=== PATIENT | female | born 1955 | race Caucasian/White ===

== ENCOUNTER → 2017-01-07 17:31 | Outpatient (CLI) | payer BC ==
[2016-04-14 14:25] VITALS: BMI 53.4
[~2017-01-07 17:31] MED LIST: BACTROBAN NASAL1 GM NASAL; CLEOCIN HCL300 MG PO; EFFEXOR XR150 MG PO; ELIQUIS2.5 MG PO; FERREX 150 PLUS1 CAP PO; HYDROCODON-ACE1 EAC9 PO; HYDROCODONE-APA1 TAB PO; KLOR-CON 1010 MEQ PO; MAG-OXIDE400 MG PO; MAXZIDE 75/501 TAB PO; MORPHINE SULFAT30 M4 PO; NEURONTIN 300300 MG PO; PROTONIX40 MG PO; STOOL SOFTENER240 MG PO; ZANAFLEX4 MG PO
== END | disposition home or self-care (01) ==
LOC: D.LABREF 17:31
DX: M19.90 Unspecified osteoarthritis, unspecified site (principal)

== ENCOUNTER 2017-03-22 05:15 | Inpatient (IN) | payer BC ==
[2017-03-19 12:35] LABS: BASOPHILS 1.4 % (0-2); EOSINOPHILS 0.5 % (0-7); HEMATOCRIT 37.3 % (36.0-48.0); HEMOGLOBIN 11.8 g/dL (12-16); IMMATURE GRANULOCYTES 0.2 % (0-5); LYMPHOCYTES 27.6 % (15-50); MCH 27.4 pg (26.0-34.0); MCHC 31.6 g/dL (31.0-37.0); MCV 86.7 fL (80.0-100.0); MEAN PLATELET VOLUME 10.8 fL (7.4-10.4); MONOCYTES 11.4 % (2-11); NEUTROPHILS 58.9 % (40-80); PLATELET COUNT 305 10x3/uL (130-400); RDW 21.7 % (11.5-14.5); WBC 4.3 10x3/uL (4.8-10.8)
[2017-03-19 12:44] LABS: APTT 24.1 SECONDS (22.8-39.4); INR 1.06 (0.85-1.17); PROTIME 13.6 SECONDS (11.6-15.0)
[2017-03-19 12:45] LABS: APPEARANCE HAZY (CLEAR); BILIRUBIN NEGATIVE (NEGATIVE); COLOR YELLOW (YELLOW); GLUCOSE NEGATIVE (NEGATIVE); KETONE NEGATIVE (NEGATIVE); LEUKOCYTE ESTERASE 1+ (NEGATIVE); NITRITE NEGATIVE (NEGATIVE); PROTEIN NEGATIVE (NEGATIVE); SPECIFIC GRAVITY 1.015 (1.005-1.020); UROBILINOGEN NORMAL (NORMAL)
[2017-03-19 12:46] LABS: ANION GAP 18.2 mmol/L (8-16); CALCIUM 9.2 mg/dL (8.5-10.1); CARBON DIOXIDE 22.7 mmol/L (21.0-32.0); CREATININE - SERUM 1.1 mg/dL (0.6-1.3); POTASSIUM - SERUM 3.9 mmol/L (3.5-5.1)
[2017-03-19 12:48] LABS: BACTERIA MODERATE /hpf (NONE SEEN); RED CELLS - URINE OCC /hpf (0-5)
[2017-03-22] VITALS (11 sets, daily range): BP systolic 121–155; BP diastolic 47–91; Ht 167.6 cm; Wt 136.4 kg
[~2017-03-22] VITALS: Ht 167.6 cm; Wt 136.4 kg
[~2017-03-22 05:15] MED LIST changes: +DURAGESIC1 PATCH .7 TRANSDERM; +FUROSEMIDE40 MG PO; +LYRICA75 MG PO
[2017-03-22] MEDS ORDERED: BENTYL 20 MG TA20 MG (11:19)
[2017-03-22] MEDS ORDERED: ENDOCET 10-3251 TAB PO (11:20)
--- NOTE | 2017-03-22 15:15 | NUR ---
RECEIVED TO ROOM 2209 VIA BED FROM PACU. A/O X3. DRESSING TO LEFT HIP DRY AND INTACT WITH ICE BAG IN PLACE. INSTRUCTED IN USE OF IS WA. RETURN DEMONSTRATION. SKIN INTACT. DENIES NEEDS.
--- NOTE | 2017-03-22 18:56 | NUR ---
ATE ALL OF SUPPER. REPORTS GOOD RELIEF WITH USE OF PERCOCET PO. WILL CONTINUE TO MONITOR. NO CHANGES NOTED. DENIES NEEDS.
--- NOTE | 2017-03-22 23:45 | NUR ---
PATIENT RESTING IN BED. VISITING WITH SISTER. SMILING AND LAUGHING. INSISTING PAIN IS 8/10 TO HIP. REQUESTING "PAIN PUMP". EDUCATED PATIENT ON PAIN SCALE. CONTINUES TO RATE PAIN 8/10. [employer] STARTED PER ORDER AT PATIENT REQUEST. SCHEDULED MEDS GIVEN. SHIFT ASSESSMENT COMPLETED. DENIES ANY OTHER NEEDS AT THIS TIME.
[2017-03-23] VITALS: BP 106/59
--- NOTE | 2017-03-23 03:03 | NUR ---
PATIENT RESTING WITH EYES CLOSED AND NO VISIBLE SIGNS OF DISTRESS. BED IN LOWEST POSITION AND CALL LIGHT WITHIN REACH.
[2017-03-23 04:00] VITALS: BP 100/51
[2017-03-23 07:00] LABS: HEMATOCRIT 29.6 % (36.0-48.0); HEMOGLOBIN 9.1 g/dL (12-16); MCH 26.8 pg (26.0-34.0); MCHC 30.7 g/dL (31.0-37.0); MCV 87.3 fL (80.0-100.0); MEAN PLATELET VOLUME 10.7 fL (7.4-10.4); RBC 3.39 10x6/uL (4.00-5.40); RDW 21.7 % (11.5-14.5); WBC 7.4 10x3/uL (4.8-10.8)
--- NOTE | 2017-03-23 07:39 | NUR ---
AWAKE AND ALERT. ORIENTED X3. LUNGS ARE CLEAR BILATERALLY, NO COUGH NOTED. SKIN IS INTACT WITHOUT REDNESS EXCEPT INCISION TO LEFT HIP WHICH HAS A DRY INTACT DRESSING IN PLACE. IV TO LEFT WRIST IS PATENT WITHOUT REDNESS AT INSERTION SITE. DENIES NEEDS.
[2017-03-23 08:18] VITALS: BP 100/50
--- NOTE | 2017-03-23 10:00 | NUR ---
SITTING UP IN CHAIR AT BEDSIDE PER PT. DENIES NEEDS.
--- NOTE | 2017-03-23 11:26 | NUR ---
REQUESTED AND GIVNE ONE PERCOCET PO FOR C/O LEFT HIP LEVEL 9. WILL MONITOR.
[2017-03-23 11:52] VITALS: BP 130/71
--- NOTE | 2017-03-23 13:58 | NUR ---
ATE MOST OF LUNCH. AMBULATED WITH PT USING RW. NO C/O AT THIS TIME. DENIES NEEDS.
--- NOTE | 2017-03-23 14:18 | NUR ---
Patient Name: ESTRADA BARR Admission Status: Elective Accout number: [id number] Admission Date: 03-22-2017 : 1955 Admission Diagnosis: Attending: NATASHA Current LOS: 1 Anticipated DC Date: 03-25-2017 Planned Disposition: Home with Home Health Primary Insurance: [employer] [facility] EXCHANGE Discharge Planning Comments: CM MET WITH PATIENT REGARDING D/C NEEDS AND PLANS. PATIENT STATED HER FRIEND (CARIE) WILL PICK HER UP AT DISCHARGE. PATIENTS HOME IS SAFE AND HAS A RAMP TO ENTER HOME AND NO STAIRS INSIDE. PATIENT STATED SHE IS INDEPENDENT WITH HER CARE AND HAS A ROLATOR WALKER, CANE, AND BS COMMODE AT HOME. PATIENTS PCP IS DR. DE LA CRUZ AND USES [facility] IN [place]. PATIENT IS FINDING OUT WHICH HOME HEALTH SHE USED THE LAST TIME AND LET CM KNOW. CM WILL CONTINUE TO FOLLOW PATIENT WITH D/C NEEDS AND PLANS. [facility] DR[facility] [place] [phone] CARIE (FRIEND) [phone] Scrap Drop Operator: Lucy Sweet Is the patient Alert and Oriented? Yes 0 * How many steps to enter\exit or inside your home? RAMP 0 * PCP DR. DE LA CRUZ 0 * Pharmacy [facility] IN [place] 0 * Preadmission Environment Home with Family 0 * ADLs Independent 0 * Equipment Bedside Commode Cane Rolling Walker 0 * List name and contact numbers for known caregivers / representatives who currently or will assist patient after discharge: CARIE MEENAKSHI (FRIEND) [phone] 0 * Community resources currently utilized None 0 * Additional services required to return to the preadmission environment? Yes 0 * Can the patient safely return to the preadmission environment? Yes 0 * Has this patient been hospitalized within the prior 30 days at any hospital? No 0 Grand Total: 0
--- NOTE | 2017-03-23 16:09 | NUR ---
CM REASSESSMENT NOTE: PATIENT USED [facility] IN [place] AND REFERRAL WILL BE SENT FOR PT. [facility] ([place]) [phone] FAX [phone]
[2017-03-23 16:28] VITALS: BP 109/47
--- NOTE | 2017-03-23 18:44 | NUR ---
ATE ABOUT HALF OF SUPPER. WAS UP TO BR AND DRESSING TO LEFT HIP WAS REENFORCED PER STAFF. NO CHANGES NOTED. REPORTS NO BM TODAY.
[2017-03-23 20:00] VITALS: BP 97/53
--- NOTE | 2017-03-23 20:07 | NUR ---
MEDS GIVEN PER MAR, ETHAN WELL, DENIES NEEDS, FALL PRECAUTIONS IN PLACE, CL IN REACH
--- NOTE | 2017-03-23 21:50 | NUR ---
WATCHING TV, DENIES NEEDS, SAFETY MEASURES IN PLACE, CL IN REACH
--- NOTE | 2017-03-23 23:40 | NUR ---
PRN OXY GIVEN PER REQUEST FOR C/O PAIN 06/10, ETHAN WELL, CL IN REACH
[2017-03-24] VITALS: BP 106/59
--- NOTE | 2017-03-24 01:25 | NUR ---
RESTING WITH EYES CLOSED, RESP WITH EASE, NO DISTRESS NOTED, SR'S UP, CL IN REACH
[2017-03-24 04:00] VITALS: BP 82/43
[2017-03-24 05:57] LABS: HEMATOCRIT 25.5 % (36.0-48.0); HEMOGLOBIN 8.2 g/dL (12-16); MCH 27.9 pg (26.0-34.0); MCHC 32.2 g/dL (31.0-37.0); MCV 86.7 fL (80.0-100.0); MEAN PLATELET VOLUME 10.5 fL (7.4-10.4); RBC 2.94 10x6/uL (4.00-5.40); RDW 21.7 % (11.5-14.5)
[2017-03-24 06:02] LABS: WBC 4.8 10x3/uL (4.8-10.8)
--- NOTE | 2017-03-24 07:30 | NUR ---
REPORT RECEIVED FROM SKIN PASS OPERATOR NURSE. CALL LIGHT IN REACH.
--- NOTE | 2017-03-24 07:52 | NUR ---
PERCOCET PO WITH AM MEDS ADMINISTERED. REFUSES SCDs AT THIS TIME. CALL LIGHT IN REACH.
[2017-03-24 08:07] VITALS: BP 86/53
--- NOTE | 2017-03-24 08:36 | NUR ---
PATIENT STATED SHE HAS GOT OUT OF BED BY HERSELF. EDUCATED PATIENT ON FALL PRECAUTIONS, TURNED BED ALARM ON. PATIENT STATED "I AM NOT GOING TO GET UP BY MYSELF AGAIN."
--- NOTE | 2017-03-24 10:20 | NUR ---
SITTING IN CHAIR PER PT. ALSO AMBULATED IN HALLWAY WITH PHYSICAL THERAPY.
--- NOTE | 2017-03-24 11:51 | NUR ---
SITTING IN CHAIR. NORCO PO PER PATIENT REQUEST FOR PAIN MEDS D/T PAIN OF 7.
--- NOTE | 2017-03-24 12:20 | NUR ---
NORCO PO PER PATIENT REQUEST FOR PAIN MEDS D/T PAIN OF 7.
[2017-03-24 12:34] VITALS: BP 130/57
--- NOTE | 2017-03-24 14:35 | NUR ---
PRBC UNIT 1 INITIATED PER SAMMY VANCE. VSS. WILL CONTINUE TO MONITOR VITAL SIGNS.
--- NOTE | 2017-03-24 15:18 | NUR ---
PLACED ON BEDPAN. PERCOCET PO PER PATIENT REQUEST.
[2017-03-24 16:27] VITALS: BP 121/30
--- NOTE | 2017-03-24 17:30 | NUR ---
BLOOD IS COMPLETED. VSS. CALL LIGHT IN REACH.
--- NOTE | 2017-03-24 18:55 | NUR ---
NO CHANGES IN INITIAL ASSESSMENT. CALL LIGHT IN REACH. REFUSES SCDs. ICE TO HIP. WILL CONTINUE WITH PLAN OF CARE.
[2017-03-24 20:00] VITALS: BP 134/53
--- NOTE | 2017-03-24 22:59 | NUR ---
REC'D PATIENT SITTING UP IN BED WATCHING TV. ALERT AND ORIENTED X4. NO DISTRESS NOTED. IS WANTING A PAIN PILL STATED PAIN WAS "7/10" WILL ADMINISTER PM MEDS PRESCRIBED. DENIED FURTHER NEEDS AT THIS TIME. BED LOW, LOCKED, CALL LIGHT IN REACH.
[2017-03-25] VITALS: BP 90/47
--- NOTE | 2017-03-25 01:44 | NUR ---
PATIENT WAS COMPLAINING OF PAIN AFTER SHE CAME BACK FROM THE BATHROOM. REPORTED PAIN 7/10. ASKED FOR A PAIN PILL, WILL ADMINISTER MEDS ORDERED.
[2017-03-25 04:00] VITALS: BP 99/45
--- NOTE | 2017-03-25 07:10 | NUR ---
REPORT RECEIVED FROM COMPLIANCE INVESTIGATOR NURSE. CALL LIGHT IN REACH.
--- NOTE | 2017-03-25 07:53 | NUR ---
PERCOCET PO WITH AM MEDS ADMINISTERED. CALL LIGHT IN REACH. REFUSES SCDs. WILL CONTINUE WITH PLAN OF CARE.
[2017-03-25 08:09] VITALS: BP 92/53
[2017-03-25] MEDS ORDERED: ENDOCET 10-3251 TAB PO (08:16)
[2017-03-25] MEDS ORDERED: ELIQUIS2.5 MG PO (08:16)
[2017-03-25 08:29] LABS: HEMATOCRIT 29.5 % (36.0-48.0); HEMOGLOBIN 9.4 g/dL (12-16)
--- NOTE | 2017-03-25 09:08 | NUR ---
CM Note: CM checked with patient prior to discharge, pt stated that she has everthing set up and can not think of any other needs at this time. CM will continue to follow & assist if needed. Symone Rios RN
--- NOTE | 2017-03-25 10:20 | NUR ---
AMBULATED WITH PT. TOLERATED WELL.
--- NOTE | 2017-03-25 12:15 | NUR ---
PATIENT UP AT BEDSIDE. NO SIGNS OF DISTRESS NOTED. STATES RIDE WILL BE HERE IN ABOUT AN HOUR
--- NOTE | 2017-03-25 12:39 | NUR ---
CM: PT discharging today with friend driving her home. [facility] aware of patients discharge Kristina BARBOUR RN
--- NOTE | 2017-03-25 13:01 | NUR ---
DURAGESIC PATCH CHANGED. RX FOR ELIQUIS AND PERCOCET HANDED TO PATIENT. DC INSTRUCTIONS EXPLAINED. VERBALIZED UNDERSTANDING.
--- NOTE | 2017-03-25 13:30 | NUR ---
DC'D TO VEHICLE VIA WC WITH FAMILY.
--- NOTE | 2017-03-30 13:11 | OP ---
PATIENT NAME: ESTRADA BARR MEDICAL RECORD: [id number] :[birth year] LOCATION:D[facility] [place] ADMISSION DATE:03/22/17 SURGEON: TIFFANY CRAWFORD MD DATE OF OPERATION: 03/22/2017 PREOPERATIVE DIAGNOSES: 1. Degenerative arthritis of the left hip. 2. Morbid obesity. POSTOPERATIVE DIAGNOSES: 1. Degenerative arthritis of the left hip. 2. Morbid obesity. PROCEDURE: Left total hip arthroplasty. SURGEON: Tiffany Crawford MD ANESTHESIA: General. INTRAOPERATIVE COMPLICATIONS: None. SUMMARY OF PATHOLOGIC FINDINGS: The patient did indeed have severe osteoarthritic changes of the left hip. IMPLANTS USED: [place] Accolade II, total hip system with size 6 TMZF coated Accolade II stem, a Tritanium hemispherical cluster hole shell size 50, alpha code D, 0-degree polyethylene insert, 36-mm alpha code D and a Biolox ceramic V40 femoral head, standard. ESTIMATED BLOOD LOSS: 200 cc. OPERATIVE SUMMARY IN DETAIL: After obtaining the appropriate preoperative orthopedic surgery consents as well as anesthetic consultation, evaluation and clearance, the patient was brought to the operating room and placed on the operating table in supine position. After adequate general laryngeal mask airway anesthesia was administered, the patient was placed in the right lateral decubitus position. All pressure points were well padded to include down leg peroneal pad as well as axillary roll. The patient was held firmly to the operating table using the vacuum pack suction system. Left hip and lower extremity were prepped and draped in a routine sterile fashion. Curvilinear incision was made. Incision was made and taken down to the level of the IT band, which was very deep to the superficial tissues. IT band was identified and split in line with the fibers of the IT band to reveal gluteus medius and minimus attachment to the greater trochanter. These were reflected anteriorly. The hip capsule was then cut in a T-type fashion and saved for later reapproximation. Hip was dislocated and the femoral neck cut was made using the femoral neck cutting guide for the Accolade system. The acetabulum was completely exposed. Circumferential labrectomy was followed by serial and sequential reaming to a size 49 up for a size 50 Tritanium cup. This was put into place with excellent capture, polyethylene was tamped into place and checked. At this point, the proximal femur was exposed and serial and sequential reaming and broaching were done for a size 6 Accolade stem was put into place. Trials were then undertaken with the head and it was felt that standard was the most appropriate for leg length uatsdin. Standard head was tamped into place with Dowell taper. The hip was reduced, taken through range of OPERATIVE REPORT [id number] ESTRADA BARR B motion and found to be stable in all planes. Wound was copiously irrigated. The hip capsule was closed using #2 Ethibond followed by reapproximation of the gluteus medius and minimus in a transosseous fashion back to the greater trochanter using #5 Ethibond. IT band was closed with #5 Ethibond. This was followed by #1 Vicryl, 2-0 Vicryl and skin amber. Please note that in multiple points during the case was the wound irrigated. Sterile dressings were applied. The patient was awakened, taken to recovery room in stable condition. All final needle and sponge counts were correct. TRANSINT:[id number] Voice Confirmation ID: [id number] DOCUMENT ID: [id number] TY LIMA, TIFFANY GAMBOA at 1311 CC: [id number] DICTATION DATE: 03/22/17 1401 METAL TEMPLATE MAKER: 03/22/17 2325 DIS IN 03/25/17 [facility] [address] [place] [address]
== END 2017-03-25 13:30 | disposition home health service (06) | DRG 470 ==
LOC: D.MS 05:15 → D.SDCHOLD 05:15 → D.MS 14:48
PROVIDERS: ADMIT Orthopaedic Surgery
PROC: 0SRB04Z Replacement of Left Hip Joint with Ceramic on Polyethylene Synthetic Substitute, Open Approach (ICD-10-PCS; principal; 2017-03-22 10:30)
DX: M16.12 Unilateral primary osteoarthritis, left hip (principal); Z68.43 Body mass index [BMI] 50.0-59.9, adult; D62 Acute posthemorrhagic anemia; E66.01 Morbid (severe) obesity due to excess calories; I10 Essential (primary) hypertension

== ENCOUNTER 2017-04-05 00:30 | Emergency (ER) | payer BC ==
[2017-03-22 15:18] VITALS: BMI 48.5
[~2017-04-05 00:30] MED LIST changes: +BENTYL 20 MG TA20 MG; +ENDOCET 10-3251 TAB PO
[2017-04-05 01:50] LABS: HEMATOCRIT 33.9 % (36.0-48.0); HEMOGLOBIN 10.8 g/dL (12-16); LYMPHOCYTES 9.3 % (15-50); MCH 28.2 pg (26.0-34.0); MCHC 31.9 g/dL (31.0-37.0); MCV 88.5 fL (80.0-100.0); MEAN PLATELET VOLUME 9.9 fL (7.4-10.4); RBC 3.83 10x6/uL (4.00-5.40); RDW 19.5 % (11.5-14.5); WBC 5.9 10x3/uL (4.8-10.8)
[2017-04-05 01:56] LABS: PLATELET COUNT 298 10x3/uL (130-400)
[2017-04-05 02:02] LABS: ALBUMIN 3.5 g/dL (3.4-5.0); ANION GAP 15.2 mmol/L (8-16); BILIRUBIN - TOTAL 0.55 mg/dL (0.2-1.3); CALCIUM 9.5 mg/dL (8.5-10.1); CARBON DIOXIDE 27.6 mmol/L (21.0-32.0); POTASSIUM - SERUM 3.8 mmol/L (3.5-5.1); PROTEIN - SERUM 7.5 g/dL (6.4-8.2)
== END 2017-04-05 02:30 | disposition home or self-care (01) ==
LOC: D.ER 00:30
PROVIDERS: Family Medicine
DX: L76.34 Postprocedural seroma of skin and subcutaneous tissue following other procedure (principal); K21.9 Gastro-esophageal reflux disease without esophagitis; Y83.8 Other surgical procedures as the cause of abnormal reaction of the patient, or of later complication, without mention of misadventure at the time of the procedure; Y79.2 Prosthetic and other implants, materials and accessory orthopedic devices associated with adverse incidents

== ENCOUNTER → 2017-04-09 12:47 | Outpatient (CLI) | payer BC ==
[2017-03-22 15:18] VITALS: BMI 48.5
== END | disposition home or self-care (01) ==
LOC: D.LABREF 12:47
DX: Z96.642 Presence of left artificial hip joint (principal)

== ENCOUNTER 2017-04-15 18:12 | Inpatient (IN) | payer BC ==
[~2017-04-15] VITALS: Ht 167.6 cm; Wt 138.3 kg
[2017-04-15 19:42] LABS: EOSINOPHILS 1.7 % (0-7); HEMATOCRIT 36.6 % (36.0-48.0); HEMOGLOBIN 11.4 g/dL (12-16); IMMATURE GRANULOCYTES 0.2 % (0-5); LYMPHOCYTES 19.6 % (15-50); MCH 27.8 pg (26.0-34.0); MCHC 31.1 g/dL (31.0-37.0); MCV 89.3 fL (80.0-100.0); MEAN PLATELET VOLUME 10.9 fL (7.4-10.4); NEUTROPHILS 67.5 % (40-80); PLATELET COUNT 338 10x3/uL (130-400); RDW 17.6 % (11.5-14.5); WBC 5.2 10x3/uL (4.8-10.8)
[2017-04-15 19:53] LABS: C-REACTIVE PROTEIN 2.5 mg/dL (0.0-0.9); CALCIUM 9.2 mg/dL (8.5-10.1); CARBON DIOXIDE 25.7 mmol/L (21.0-32.0); CREATININE - SERUM 1.1 mg/dL (0.6-1.3); POTASSIUM - SERUM 3.7 mmol/L (3.5-5.1)
[2017-04-15] MEDS ORDERED: BACTRIM DS TABL1 TAB PO (20:06)
[2017-04-15 20:46] VITALS: BP 154/89; BMI 49.3
[2017-04-15 20:53] LABS: ERYTHROCYTE SEDIMENTATION RATE 42 mm/hr (0-30)
--- NOTE | 2017-04-15 20:54 | NUR ---
RN NOTE: ADMISSION ASSESSMENT COMPLETE. PT RESTING IN SUPINE POSITION WITH UNLABORED BREATHING. CANE AT BEDSIDE FOR PT AMBULATION ASSISTANCE. DRESSING ON LEFT HIP CHANGED BY NITRATING ACID MIXER, WITH OLD DRESSING SATURATED WITH PURALENT DRAINAGE. WILL MONITOR CLOSELY FOR NEEDS.
[2017-04-16] VITALS: BP 111/63
[2017-04-16 04:00] VITALS: BP 152/62
--- NOTE | 2017-04-16 07:30 | NUR ---
PT ASSESSMENT COMPLETE AWAKE AND ALERT ORIENTED X 3 LUNGS CLEAR NPO FOR I&D TODAY LEFT HIP WITH DR CRAWFORD. CALL LIGHT IN REACH SIDE RAILS UP X 2
[2017-04-16 08:00] VITALS: BP 138/75
[2017-04-16 11:03] VITALS: BP 132/60
--- NOTE | 2017-04-16 11:49 | NUR ---
FAMILY AT BEDSIDE.PT WITHOUT DISTRESS.CALL LIGHT IN REACH
--- NOTE | 2017-04-16 12:14 | NUR ---
PT REQUESTED AND RECIEVED PERCOCET PER ORDER FOR PAIN CONTROL EARLIER RESTING WELL WITH EYES CLOSED AT THIS TIME AROUSED EASILY TO VERBAL STIMULI
[2017-04-16 12:34] VITALS: Ht 167.6 cm; Wt 138.3 kg
[2017-04-16 16:15] VITALS: BP 146/62
--- NOTE | 2017-04-16 16:17 | NUR ---
RECIEVED TO ROOM 2215 VIA BED PT AWAKE AND ALERT WOUND VAC TO LEFT HIP VITAL SIGNS WNL
[2017-04-16 20:00] VITALS: BP 126/62
--- NOTE | 2017-04-16 21:00 | NUR ---
PATIENT IS RESTING IN BED WITH GUESTS AT BEDSIDE. NO VISIBLE SIGNS OF DISTRESS. WOUND VAC IN PLACE. BED IN LOWEST POSITION AND CALL LIGHT WITHIN REACH. ENCOURAGED THE PATIENT TO CALL IF SHE HAS NEEDS.
[2017-04-17 00:11] VITALS: BP 135/56
[2017-04-17 04:00] VITALS: BP 125/62
--- NOTE | 2017-04-17 08:15 | NUR ---
ASSESSMENT COMPLETE. IV TO R FA PATENT. NS INFUSING AT 100 CC/HR VIA PUMP. WOUNDVAC IN USE TO L HIP. DENIES ANY NEEDS AT PRESENT.
[2017-04-17 08:59] VITALS: BP 164/78
--- NOTE | 2017-04-17 10:00 | NUR ---
IV TO R FA WITH SWELLING NOTED. IV REMOVED. CATHETER TIP INTACT. IV SITED TO L FA WITH 22 GUAGE X 1 ATTEMPT.
[2017-04-17 13:13] VITALS: BP 156/85
--- NOTE | 2017-04-17 15:00 | NUR ---
DENIES ANY NEEDS AT PRESENT.
[2017-04-17 17:43] VITALS: BP 117/65
--- NOTE | 2017-04-17 17:57 | NUR ---
NO CHANGES NOTED AT PRESENT.
[2017-04-17 20:00] VITALS: BP 154/72
--- NOTE | 2017-04-17 20:00 | NUR ---
PATIENT IS RESTING IN BED AND DENIES NEEDS AT THIS TIME. BED IN LOWEST POSITION AND CALL LIGHT WITHIN REACH. ENCOURAGED THE PATIENT TO CALL IF SHE HAS NEEDS.
[2017-04-18] VITALS: BP 110/54
[2017-04-18 04:00] VITALS: BP 168/61
--- NOTE | 2017-04-18 08:00 | NUR ---
ASSESSMENT COMPLETE. IV TO L FA PATENT. NS INFUSING AT 100 CC/HR VIA PUMP. WOUNDVAC IN USE TO L HIP. DENIES ANY NEEDS AT PRESENT.
[2017-04-18 09:02] VITALS: BP 153/74
--- NOTE | 2017-04-18 11:00 | NUR ---
NO CHANGES NOTED AT PRESENT.
[2017-04-18 12:44] VITALS: BP 133/65
--- NOTE | 2017-04-18 13:00 | NUR ---
NO CHANGES NOTED AT PRESENT.
--- NOTE | 2017-04-18 17:00 | NUR ---
NO CHANGES NOTED AT PRESENT.
[2017-04-18 17:19] VITALS: BP 146/74
--- NOTE | 2017-04-18 18:15 | NUR ---
IV TO L FA WITH REDNESS AND TENDERNESS NOTED. IV REMOVED. CATHETER TIP INTACT.
--- NOTE | 2017-04-18 19:40 | NUR ---
PATIENT RESTING IN BED AND DENIES NEEDS AT THIS TIME. BED IN LOWEST POSITION AND CALL LIGHT WITHIN REACH. ENCOURAGED THE PATIENT TO CALL IF SHE HAS NEEDS.
[2017-04-18 20:00] VITALS: BP 121/72
[2017-04-19] VITALS (10 sets, daily range): BP systolic 122–156; BP diastolic 50–93
[2017-04-19 06:44] LABS: HEMATOCRIT 33.2 % (36.0-48.0); HEMOGLOBIN 10.1 g/dL (12-16); MCH 27.3 pg (26.0-34.0); MCHC 30.4 g/dL (31.0-37.0); MCV 89.7 fL (80.0-100.0); MEAN PLATELET VOLUME 10.3 fL (7.4-10.4); RBC 3.7 10x6/uL (4.00-5.40); RDW 17.2 % (11.5-14.5); WBC 2.8 10x3/uL (4.8-10.8)
[2017-04-19 07:05] LABS: ANION GAP 13.4 mmol/L (8-16); CALCIUM 8.8 mg/dL (8.5-10.1); CARBON DIOXIDE 28.7 mmol/L (21.0-32.0); CREATININE - SERUM 0.9 mg/dL (0.6-1.3); POTASSIUM - SERUM 4.1 mmol/L (3.5-5.1)
--- NOTE | 2017-04-19 07:05 | NUR ---
PATIENT RECEIVED ALERT IN LOW [place] POSITION. NO SIGNS OF DISTRESS NOTED. REQUESTING PAIN MEDICATION. NO OTHER NEEDS VOICED. SIDE RAILS UP X2. BED IN LOW POSITION. CALL LIGHT IN REACH.
--- NOTE | 2017-04-19 07:27 | NUR ---
PERCOCET ADMINISTERED PER PRN ORDER FOR PAIN 04/10. NO FURTHER NEEDS VOICED. SIDE RAILS UP X2. BED IN LOW POSITION. CALL LIGHT IN REACH.
--- NOTE | 2017-04-19 09:00 | NUR ---
ALERT IN BED. RATES PAIN 5/10. DENIES NEEDS. SIDE RAILS UP X2. BED IN LOW POSITION. CALL LIGHT IN REACH.
--- NOTE | 2017-04-19 11:30 | OP ---
PATIENT NAME: ESTRADA BARR MEDICAL RECORD: [id number] :59 LOCATION:D.[facility] [place] ADMISSION DATE:04/15/17 SURGEON: TIFFANY CRAWFORD MD DATE OF OPERATION: 04/16/2017 PREOPERATIVE DIAGNOSIS: Draining wound, status post total hip arthroplasty of the left hip. POSTOPERATIVE DIAGNOSIS: Large infected hematoma of the left hip wound that did not go to the prosthesis. PROCEDURE: 1. Excisional debridement of large infected hematoma. 2. Application of wound VAC. SURGEON: Tiffany Crawford MD. ANESTHESIA: General. INTRAOPERATIVE COMPLICATIONS: None. SUMMARY OF PATHOLOGIC FINDINGS: The patient had a very small pinpoint hole; however, when opened up, it was a hematoma that measured approximately 30 cm x 10 cm x 15 cm deep; however, did not appear to penetrate to the hip prosthesis itself. Cultures were taken. OPERATIVE SUMMARY IN DETAIL: After obtaining the appropriate preoperative orthopedic surgery consent as well as anesthetic consultation, evaluation and clearance, the patient was brought to the operating room and placed on the operating table in supine position. After general laryngeal mask was administered, the patient was placed in a right lateral decubitus position. All pressure points were well padded to include down leg peroneal pad as well as axillary roll. The patient was held firmly to the operating table using the vacuum pack suction system. The patient's left lower extremity and hip were prepped and draped in a routine sterile fashion. At this point, the last remaining amber were taken out and the small wound was opened up and came open slightly and palpation in with a sucker tip showed that this is a very large wound. The entire cavity was then opened up and all nonviable-appearing tissue was removed using scalpel, rongeur and curettage. Copious pulsatile lavage irrigation was used to clean the entirety of the wound. Then, a double layer silver sponge wound VAC was put into place. The wound VAC was set at 125 medium intensity with continuous suction. The patient was then awakened, taken to recovery room in stable condition. All final needle and sponge counts were correct. TRANSINT:[id number] Voice Confirmation ID: [id number] DOCUMENT ID: [id number] OPERATIVE REPORT [id number] ESTRADA BARR MD, JAMES KEVIN at 1130 CC: [id number] DICTATION DATE: 04/16/17 1518 STOVE MECHANIC: 04/17/17 0011 ADM IN [facility] [address] [place] [id number]
--- NOTE | 2017-04-19 12:00 | NUR ---
ALERT IN BED WATCHING TV. NO SIGNS OF DISTRESS NOTED. DENIES NEEDS. SIDE RAILS UP X2. BED IN LOW POSITION. CALL LIGHT IN REACH.
--- NOTE | 2017-04-19 14:20 | NUR ---
ALERT IN BED WATCHING TV. PRE PROCEDURE MEDICATION ADMINISTERED PER ORDER. DENIES NEEDS. SIDE RAILS UP X2. BED IN LOW POSITION. CALL LIGHT IN REACH.
--- NOTE | 2017-04-19 14:57 | NUR ---
PATIENT TO SURGERY VIA BED
--- NOTE | 2017-04-19 16:17 | NUR ---
Patient is presently on service with [facility]. CM spoke w/ Marilee at the [place] office. Plan is to resume care at discharge. CM went to patient's room earlier however she was in surgery for I&D. CM will revisit to assess pt's plan and needs. PCP- DR Matthew Miller Surgery- DR Hilton
--- NOTE | 2017-04-19 17:00 | NUR ---
PATIENT BACK TO ROOM FROM PACU. A/O X4. VITAL SIGNS STABLE. INCENTIVE SPIROMETER AND TEACHING PROVIDED. DEMONSTRATES CORRECT USE. DENIES NEEDS. SIDE RAILS UP X2. BED IN LOW POSITION. CALL LIGHT IN REACH.
--- NOTE | 2017-04-19 18:34 | NUR ---
ALERT IN BED WATCHING TV. NO SIGNS OF DISTRESS NOTED. VITAL SIGNS STABLE. PERCOCET ADMINISTERED FOR PAIN 05/10. SIDE RAILS UP X2. BED IN LOW POSITION. CALL LIGHT IN REACH.
--- NOTE | 2017-04-19 20:00 | NUR ---
ASSESSMENT PER FLOWSHEET. IV PATENT LEFT FOREARM OF 1/2NS AT 50CC'S/HR SITE CLEAR. DRESSING TO LEFT HIP INCISION WITH WOUND VAC IN PLACE. RESTING QUIETLY. DENIES NEEDS.
--- NOTE | 2017-04-19 21:00 | NUR ---
MEDS GIVEN PER MAR.
--- NOTE | 2017-04-19 23:41 | NUR ---
C/O INCISIONAL PAIN RATES PAIN LEVEL #6. PERCOCET TAB ONE PO GIVEN FOR PAIN CONTROL.
[2017-04-20] VITALS: BP 132/70
--- NOTE | 2017-04-20 02:00 | NUR ---
RESTING QUIETLY GETS UP AD RADHA TO BR VOIDS WELL.
[2017-04-20 04:00] VITALS: BP 113/57
--- NOTE | 2017-04-20 04:06 | NUR ---
C/O INCISIONAL PAIN RATES PAIN LEVEL #6. PERCOCET TAB ONE PO GIVEN FOR PAIN CONTROL
--- NOTE | 2017-04-20 04:49 | NUR ---
EYES CLOSED RESPIRATIONS WITH EASE AND UNLABORED.
--- NOTE | 2017-04-20 07:45 | NUR ---
PT AOX4 RESP EVEN AND NONLABORED PT DENIES NEEDS AT THIS TIME IV TO LEFT FOREARM PATENT AND INTACT SRX2 BED IN LOWEST SETTING CALL LIGHT WITHIN REACH WILL CONTINUE TO MONITOR
[2017-04-20 08:17] VITALS: BP 146/78
--- NOTE | 2017-04-20 09:35 | NUR ---
Patient Name: ESTRADA BARR Admission Status: Elective Accout number: [id number] Admission Date: 04-15-2017 : 1955 Admission Diagnosis:INFECTION FOLLOWING A PROCEDURE, INITIAL ENCOUNTER Attending: NATASHA Current LOS: 5 Anticipated DC Date: 04-21-2017 Planned Disposition: Home with Home Health Primary Insurance: [employer] [facility] EXCHANGE Discharge Planning Comments: CM MET WITH PATIENT REGARDING D/C NEEDS AND PLANS. PATIENT LIVES IN THE BASEMENT OF HER SISTERS ([facility]) HOME. PATIENT DOES NOT USE ANY STEPS OR STAIRS AT HER HOME (IT IS A WALK IN BASEMENT). PATIENTS SISTER WILL DRIVE HER HOME AT DISCHARGE.PATIENT IS INDEPENDENT WITH HER CARE AND HAS A WALKER, AND BS COMMODE AT HOME. PATIENTS PCP IS DR. DE LA CRUZ AND PHARMACY IS [facility] IN [place]. PATIENT IS CURRENT WITH [employer] [employer] CM WILL CONTINUE TO FOLLOW PATIENT WITH D/C NEEDS AND PLANS. PCP DR. DOROTHY ZHAO AT [place]- [phone] TRIST[facility] MORRISON ([place]) [phone] Manager Intern: Lucy Sweet Is the patient Alert and Oriented? Yes 0 * How many steps to enter\exit or inside your home? 0 0 * PCP DR. DE LA CRUZ 0 * Pharmacy [facility] IN [place] 0 * Preadmission Environment Home with Family 0 * ADLs Independent 0 * Equipment Bedside Commode Walker 0 * List name and contact numbers for known caregivers / representatives who currently or will assist patient after discharge: TRISTIAN MORRISON ([place]) [phone] 0 * Community resources currently utilized Home Health 0 * Please name any agencies selected above. y prime 0 * Additional services required to return to the preadmission environment? Yes 0 * Can the patient safely return to the preadmission environment? Yes 0 * Has this patient been hospitalized within the prior 30 days at any hospital? Yes 0 Grand Total: 0
--- NOTE | 2017-04-20 09:39 | NUR ---
CM REASSESSMENT NOTE: WOUND VAC ORDERED THROUGH [facility] ([place]).
[2017-04-20 12:32] VITALS: BP 157/89
[2017-04-20 16:03] VITALS: BP 146/78
[2017-04-20 20:00] VITALS: BP 118/74
[2017-04-21] VITALS: BP 135/72
[2017-04-21 04:00] VITALS: BP 144/73
--- NOTE | 2017-04-21 07:50 | NUR ---
PT AOX4 RESP EVEN AND NONLABORED PT DENIES NEEDS AT THIS TIME IV TO LEFT HAND PATENT AND INTACT SRX2 BED AT LOWEST SETTING CALL LIGHT WITHIN REACH WILL CONTINUE TO MONITOR WOUND VAC FUNCTIONING PROPERLY AT THIS TIME
[2017-04-21 09:04] VITALS: BP 134/73
[2017-04-21 10:14] LABS: BASOPHILS 1.1 % (0-2); EOSINOPHILS 4.3 % (0-7); HEMATOCRIT 36.7 % (36.0-48.0); HEMOGLOBIN 11.4 g/dL (12-16); IMMATURE GRANULOCYTES 0.5 % (0-5); LYMPHOCYTES 22.3 % (15-50); MCH 27.5 pg (26.0-34.0); MCHC 31.1 g/dL (31.0-37.0); MCV 88.6 fL (80.0-100.0); MEAN PLATELET VOLUME 10.3 fL (7.4-10.4); MONOCYTES 13.4 % (2-11); NEUTROPHILS 58.4 % (40-80); PLATELET COUNT 258 10x3/uL (130-400); RBC 4.14 10x6/uL (4.00-5.40); WBC 3.7 10x3/uL (4.8-10.8)
[2017-04-21 10:33] LABS: ANION GAP 12.5 mmol/L (8-16); CALCIUM 9.1 mg/dL (8.5-10.1); CREATININE - SERUM 1.1 mg/dL (0.6-1.3); POTASSIUM - SERUM 3.5 mmol/L (3.5-5.1)
[2017-04-21 12:44] VITALS: BP 154/83
--- NOTE | 2017-04-21 13:49 | NUR ---
NUTRITION MONITORING & EVAL CHART REVIEWED, PT VISIT. PT CURRENTLY FOLLOWING [facility]. WRITING IN FOOD PREFERENCES. RD FOLLOWING
--- NOTE | 2017-04-21 14:02 | NUR ---
CM REASSESSMENT NOTE: DR. SHELLEY SPOKE WITH CM REGARDING PATIENTS CONCERNS WITH COST OF MEDS AT DISCHARGE. JOSE SPOKE WITH [facility] IN [place] REGARDING PATIENTS CONCERNS. AFTER RUNNING INSURANCE THERE WILL BE NO COST TO PATIENT PER BIANKA (PHARMACIST) AND MEDS WILL BE READY TO DAYCARE PROVIDER AFTER LUNCH TOMORROW. DR. SHELLEY NOTIFIED WELL PATIENT.
--- NOTE | 2017-04-21 14:26 | NUR ---
WOUND VAC DRESSING CHANGE WOUND TYPE: surgical WOUND LOCATION: left hip WOUND AGE IN MONTHS: DEBRIDEMENT ATTEMPTED IN LAST 10 DAYS? DATE/TYPE: SERIAL DEBRIDEMENTS REQUIRED? MEASUREMENT DATE: 04/21/17 17.5cm x 6.5cm x 6.7cm FULL THICKNESS? yes MUSCLE, TENDON OR BONE EXPOSED? muscle UNDERMINING? no TUNNELING/SINUS? no APPEARANCE OF WOUND BED : red/beefy EXUDATE (AMOUNT, COLOR, ODOR): moderate serosanguinous no odor FOAM TYPE: black # OF PIECES USED: 2 pieces EDUCATION: Function of wound vac/troubleshooting -125mmhg mod continuous Wound care continues to follow.
[2017-04-21 16:30] VITALS: BP 130/70
[2017-04-21 20:00] VITALS: BP 130/85
--- NOTE | 2017-04-21 20:20 | NUR ---
PATIENT REFUSED MIDNIGHT VITALS
--- NOTE | 2017-04-21 20:27 | NUR ---
SPOKE WITH PHARMACY IN REGARDS TO VANC TROUGH. PHARM CONFIRMED THAT VANC 1G IS TO BE INFUSED.
[2017-04-22 04:39] VITALS: BP 127/62
[2017-04-22 06:55] LABS: BASOPHILS 1.2 % (0-2); EOSINOPHILS 3.8 % (0-7); HEMATOCRIT 32.2 % (36.0-48.0); HEMOGLOBIN 10.2 g/dL (12-16); IMMATURE GRANULOCYTES 0.3 % (0-5); LYMPHOCYTES 22.2 % (15-50); MCH 27.6 pg (26.0-34.0); MCHC 31.7 g/dL (31.0-37.0); MCV 87.3 fL (80.0-100.0); MEAN PLATELET VOLUME 10.8 fL (7.4-10.4); NEUTROPHILS 56.5 % (40-80); PLATELET COUNT 222 10x3/uL (130-400); RBC 3.69 10x6/uL (4.00-5.40); RDW 16.9 % (11.5-14.5); WBC 3.4 10x3/uL (4.8-10.8)
[2017-04-22 06:59] LABS: ANION GAP 11.7 mmol/L (8-16); CALCIUM 8.7 mg/dL (8.5-10.1); CARBON DIOXIDE 27.7 mmol/L (21.0-32.0); POTASSIUM - SERUM 3.4 mmol/L (3.5-5.1)
--- NOTE | 2017-04-22 07:35 | NUR ---
PT AOX4 RESP EVEN AND NONLABORED PT DENIES NEEDS AT THIS TIME IV TO LEFT FOREARM PATENT AND INATACT AT THIS TIME SRX2 BED AT LOWEST SETTING CALL LIGHT WITHIN REACH WILL CONTINUE TO MONITOR
[2017-04-22] MEDS ORDERED: Levaquin PO ×2 (08:18→08:27)
[2017-04-22] MEDS ORDERED: PERCOCET 10/3251 TA1 PO (08:20)
[2017-04-22] MEDS ORDERED: DURAGESIC1 PATCH .7 TRANSDERM (08:20)
[2017-04-22] MEDS ORDERED: FLAGYL500 MG PO (08:21)
[2017-04-22] MEDS ORDERED: SIVEXTRO200 M1 PO (08:22)
[2017-04-22 09:36] VITALS: BP 105/58
--- NOTE | 2017-04-22 10:32 | NUR ---
CM REASSESSMENT NOTE: PATIENT IS DISCHARGING TODAY-PATIENTS SISTER WILL BE DRIVING HER HOME. PATIENT STATED [facility] CALLED HER AND HER MEDS ARE READY. [facility] HAS BEEN NOTIFIED OF DISCHARGE.
--- NOTE | 2017-04-22 14:01 | OP ---
PATIENT NAME: ESTRADA BARR MEDICAL RECORD: [id number] :59 LOCATION:D[facility] [place] ADMISSION DATE:04/15/17 SURGEON: TIFFANY CRAWFORD MD DATE OF OPERATION: 04/19/2017 PREOPERATIVE DIAGNOSIS: Previous infected hematoma, right hip incision. POSTOPERATIVE DIAGNOSIS: Previous infected hematoma, right hip incision. PROCEDURES: 1. Repeat excisional debridement greater than 20 cm skin, subcutaneous tissue, portions of fat, fascia and muscle. 2. Placement of a wound VAC. SURGEON: Tiffany Crawford MD ANESTHESIA: General. INTRAOPERATIVE COMPLICATIONS: None. SUMMARY OF PATHOLOGIC FINDINGS: The wound has granulated nicely and was quite healthy. OPERATIVE SUMMARY IN DETAIL: After obtaining the appropriate preoperative orthopedic surgery consent as well as anesthetic consultation, evaluation and clearance, the patient was brought and placed on the operating table in supine position. After general laryngeal mask was administered, she was placed in the right lateral decubitus position. All pressure points were well padded to include down leg peroneal pad as well as axillary roll. The patient was held firmly to the operating table using the vacuum pack suction system. Left hip was prepped and draped in routine sterile fashion. The previously placed wound VAC had already been removed. At this point a combination of curettage and rongeurs as well as sharp scalpel utilized to debride any nonviable appearing tissue. Copious irrigation was then followed by placement of wound VAC, which was placed on 125 mmHg and continuous suction at medium intensity. The patient was awakened, taken to recovery in stable condition. All final needle and sponge counts were correct. TRANSINT:[id number] Voice Confirmation ID: [id number] DOCUMENT ID: [id number] TIFFANY CRAWFORD MD at 1401 CC: [id number] DICTATION DATE: 04/19/17 1621 SENIOR RESEARCH FELLOW: 04/19/17 9808 ADM IN [place] [address] [place] [address]
--- NOTE | 2017-04-22 14:21 | NUR ---
PT IV DISCONTINUED WITH CATHETER INTACT AT THIS TIME PT GIVEN DISCHARGE INSTRUCTIONS AND PRESCRIPTIONS X5 AT THIS TIME. PT TAKEN VIA WHEELCHAIR TO PRIVATE VEHICLE AT THIS TIME
== END 2017-04-22 14:24 | disposition home health service (06) | DRG 858 ==
LOC: D.LABREF 18:12 → D.MS 18:41
PROVIDERS: Student in an Organized Health Care Education/Training Program; ADMIT Orthopaedic Surgery
PROC: 0JBL0ZZ Excision of Right Upper Leg Subcutaneous Tissue and Fascia, Open Approach (ICD-10-PCS; principal; 2017-04-16 12:00)
PROC: 0KCN0ZZ Extirpation of Matter from Right Hip Muscle, Open Approach (ICD-10-PCS; 2017-04-19 09:45)
DX: T81.4XXA Infection following a procedure, initial encounter (principal); I10 Essential (primary) hypertension; M19.90 Unspecified osteoarthritis, unspecified site; Z96.642 Presence of left artificial hip joint; F32.9 Major depressive disorder, single episode, unspecified; M79.7 Fibromyalgia; R01.1 Cardiac murmur, unspecified

== ENCOUNTER → 2017-06-24 18:26 | Outpatient (CLI) | payer BC ==
[2017-04-16 12:34] VITALS: BMI 49.2
[~2017-06-24 18:26] MED LIST changes: +BACTRIM DS TABL1 TAB PO; +FLAGYL500 MG PO; +Levaquin PO; +PERCOCET 10/3251 TA1 PO; +SIVEXTRO200 M1 PO
== END | disposition home or self-care (01) ==
LOC: D.LABREF 18:26
DX: T14.8 Other injury of unspecified body region (principal)

== ENCOUNTER → 2017-07-16 07:15 | Outpatient (CLI) | payer BC ==
[2017-04-16 12:34] VITALS: BMI 49.2
== END | disposition home or self-care (01) ==
LOC: D.NM 07:00
DX: M25.552 Pain in left hip (principal)

== ENCOUNTER → 2017-07-27 20:08 | Outpatient (CLI) | payer BC ==
[2017-04-16 12:34] VITALS: BMI 49.2
== END | disposition home or self-care (01) ==
LOC: D.LABREF 20:08
DX: S71.002A Unspecified open wound, left hip, initial encounter (principal)

== ENCOUNTER → 2017-08-10 17:01 | Outpatient (CLI) | payer BC ==
[2017-04-16 12:34] VITALS: BMI 49.2
[~2017-08-10 17:01] MED LIST changes: +OXYCODONE HCL10 MG PO
[2017-08-10 17:44] LABS: BASOPHILS 0.2 % (0-2); EOSINOPHILS 0.1 % (0-7); HEMATOCRIT 33.4 % (36.0-48.0); HEMOGLOBIN 10.9 g/dL (12-16); IMMATURE GRANULOCYTES 0.4 % (0-5); LYMPHOCYTES 8.3 % (15-50); MCH 26.5 pg (26.0-34.0); MCHC 32.6 g/dL (31.0-37.0); MCV 81.3 fL (80.0-100.0); MEAN PLATELET VOLUME 11.3 fL (7.4-10.4); PLATELET COUNT 229 10x3/uL (130-400); RBC 4.11 10x6/uL (4.00-5.40); RDW 18.3 % (11.5-14.5); WBC 9.4 10x3/uL (4.8-10.8)
[2017-08-10 17:57] LABS: ALBUMIN 2.9 g/dL (3.4-5.0); ANION GAP 15.8 mmol/L (8-16); C-REACTIVE PROTEIN 5.7 mg/dL (0.0-0.9); CALCIUM 8.3 mg/dL (8.5-10.1); CARBON DIOXIDE 22.3 mmol/L (21.0-32.0); CREATININE - SERUM 1.7 mg/dL (0.6-1.3); POTASSIUM - SERUM 3.1 mmol/L (3.5-5.1); PROTEIN - SERUM 6.6 g/dL (6.4-8.2)
[2017-08-10 18:49] LABS: ERYTHROCYTE SEDIMENTATION RATE 42 mm/hr (0-30)
== END | disposition home or self-care (01) ==
LOC: D.LAB 17:01
PROVIDERS: Orthopaedic Surgery
DX: M25.552 Pain in left hip (principal)

== ENCOUNTER 2017-10-28 05:25 | Inpatient (IN) | payer BC ==
[2017-10-27 15:07] LABS: APPEARANCE CLEAR (CLEAR); BILIRUBIN NEGATIVE (NEGATIVE); COLOR YELLOW (YELLOW); GLUCOSE NEGATIVE (NEGATIVE); KETONE NEGATIVE (NEGATIVE); NITRITE NEGATIVE (NEGATIVE); PROTEIN NEGATIVE (NEGATIVE); UROBILINOGEN NORMAL (NORMAL)
[2017-10-27 15:08] LABS: BASOPHILS 1.1 % (0-2); EOSINOPHILS 2.8 % (0-7); HEMATOCRIT 36.2 % (36.0-48.0); HEMOGLOBIN 12.2 g/dL (12-16); IMMATURE GRANULOCYTES 0.2 % (0-5); LYMPHOCYTES 18.6 % (15-50); MCH 27.4 pg (26.0-34.0); MCHC 33.7 g/dL (31.0-37.0); MCV 81.3 fL (80.0-100.0); MONOCYTES 17.8 % (2-11); NEUTROPHILS 59.5 % (40-80); PLATELET COUNT 265 10x3/uL (130-400); RBC 4.45 10x6/uL (4.00-5.40); RDW 17.6 % (11.5-14.5); WBC 6.5 10x3/uL (4.8-10.8)
[2017-10-27 15:19] LABS: INR 1.25 (0.85-1.17); PROTIME 15.3 SECONDS (11.6-15.0)
[2017-10-27 15:20] LABS: APTT 30.5 SECONDS (22.8-39.4)
[2017-10-27 15:25] LABS: ANION GAP 15.2 mmol/L (8-16); CALCIUM 8.9 mg/dL (8.5-10.1); CARBON DIOXIDE 23.2 mmol/L (21.0-32.0); CREATININE - SERUM 1.6 mg/dL (0.6-1.3)
[2017-10-27 15:32] LABS: POTASSIUM - SERUM 2.4 mmol/L (3.5-5.1)
[2017-10-27 16:35] LABS: ERYTHROCYTE SEDIMENTATION RATE 25 mm/hr (0-30)
[~2017-10-28] VITALS: Ht 167.6 cm; Wt 108.6 kg
[2017-10-28] VITALS (8 sets, daily range): BP systolic 127–148; BP diastolic 59–86; BMI 38.5
[~2017-10-28 05:25] MED LIST changes: -OXYCODONE HCL10 MG PO
[2017-10-28] MEDS ORDERED: KLOR-CON 1010 MEQ PO (10:50)
[2017-10-29] VITALS (8 sets, daily range): BP systolic 101–146; BP diastolic 49–81; Ht 167.6 cm; Wt 108.6 kg
[2017-10-29 06:19] LABS: MCHC 33.3 g/dL (31.0-37.0); MCV 81.1 fL (80.0-100.0); RBC 3.7 10x6/uL (4.00-5.40); RDW 17.4 % (11.5-14.5); WBC 5.3 10x3/uL (4.8-10.8)
[2017-10-30] VITALS (8 sets, daily range): BP systolic 73–148; BP diastolic 36–73
[2017-10-30 05:09] LABS: HEMATOCRIT 28.5 % (36.0-48.0); HEMOGLOBIN 9.6 g/dL (12-16); MCH 27.1 pg (26.0-34.0); MCHC 33.7 g/dL (31.0-37.0); MCV 80.5 fL (80.0-100.0); MEAN PLATELET VOLUME 11.1 fL (7.4-10.4); RBC 3.54 10x6/uL (4.00-5.40); RDW 17.4 % (11.5-14.5)
[2017-10-30 05:10] LABS: WBC 8.5 10x3/uL (4.8-10.8)
[2017-10-30 10:14] LABS: ANION GAP 13.6 mmol/L (8-16); CALCIUM 7.2 mg/dL (8.5-10.1); CARBON DIOXIDE 22.3 mmol/L (21.0-32.0); CREATININE - SERUM 1.9 mg/dL (0.6-1.3)
[2017-10-30 10:15] LABS: POTASSIUM - SERUM 2.9 mmol/L (3.5-5.1)
[2017-10-31 00:21] LABS: HEMATOCRIT 26.5 % (36.0-48.0)
[2017-10-31 05:00] VITALS: BP 81/52
[2017-10-31 07:28] VITALS: BP 68/34
[2017-10-31 10:18] VITALS: BP 111/65
[2017-10-31 11:04] VITALS: BP 98/54
[2017-10-31 20:00] VITALS: BP 119/58
[2017-11-01 05:31] LABS: HEMATOCRIT 30.6 % (36.0-48.0); HEMOGLOBIN 10.3 g/dL (12-16); MCH 27.2 pg (26.0-34.0); MCHC 33.7 g/dL (31.0-37.0); MEAN PLATELET VOLUME 11.2 fL (7.4-10.4); RBC 3.78 10x6/uL (4.00-5.40); RDW 17.4 % (11.5-14.5); WBC 6.3 10x3/uL (4.8-10.8)
[2017-11-01 05:45] LABS: CALCIUM 7.7 mg/dL (8.5-10.1); CARBON DIOXIDE 23.1 mmol/L (21.0-32.0); CREATININE - SERUM 1.2 mg/dL (0.6-1.3); POTASSIUM - SERUM 3.1 mmol/L (3.5-5.1)
[2017-11-01 08:51] VITALS: BP 104/45
[2017-11-01] MEDS ORDERED: OXYCODONE HCL10 MG PO (11:06)
[2017-11-01] MEDS ORDERED: ELIQUIS2.5 MG PO (11:14)
== END 2017-11-01 18:08 | disposition home health service (06) | DRG 467 ==
LOC: D.SDCHOLD 05:25 → D.MS 05:25 → D.SDCHOLD 12:30 → D.MS 19:49
PROVIDERS: Orthopaedic Surgery
PROC: 0SRB0JZ Replacement of Left Hip Joint with Synthetic Substitute, Open Approach (ICD-10-PCS; principal; 2017-10-28 12:30)
PROC: 0SPB0JZ Removal of Synthetic Substitute from Left Hip Joint, Open Approach (ICD-10-PCS; 2017-10-28 12:30)
DX: T84.031A Mechanical loosening of internal left hip prosthetic joint, initial encounter (principal); D62 Acute posthemorrhagic anemia; Y79.2 Prosthetic and other implants, materials and accessory orthopedic devices associated with adverse incidents; I95.9 Hypotension, unspecified; I10 Essential (primary) hypertension

== ENCOUNTER → 2017-11-25 17:35 | Outpatient (CLI) | payer BC ==
[2017-10-29 01:23] VITALS: BMI 38.6
[~2017-11-25 17:35] MED LIST changes: +OXYCODONE HCL10 MG PO
== END | disposition home or self-care (01) ==
LOC: D.LABREF 17:35
DX: S70.02XA Contusion of left hip, initial encounter (principal); X58.XXXA Exposure to other specified factors, initial encounter; Y93.89 Activity, other specified; Y92.89 Other specified places as the place of occurrence of the external cause

== ENCOUNTER → 2017-12-23 17:13 | Outpatient (CLI) | payer BC ==
[2017-10-29 01:23] VITALS: BMI 38.6
== END | disposition home or self-care (01) ==
LOC: D.LABREF 17:13
DX: S71.002A Unspecified open wound, left hip, initial encounter (principal)

== ENCOUNTER → 2017-12-28 15:45 | Outpatient (CLI) | payer BC ==
[2017-10-29 01:23] VITALS: BMI 38.6
[~2017-12-28 15:45] MED LIST changes: +DILAUDID 012 MG/30 M IV; +FERRLECIT62.5 MG/2; +KLONOPIN0.5 MG PO; +LASIX40 MG PO; +RIFADIN300 MG PO; +RIMACTANE300 MG PO; +SOMA350 MG PO; +VANCOMYCIN 1 GM/1 G1 IV; +VIBRAMYCIN 100100 MG PO
[2017-12-28 16:45] LABS: BASOPHILS 0.5 % (0-2); EOSINOPHILS 0.2 % (0-7); HEMOGLOBIN 10.2 g/dL (12-16); IMMATURE GRANULOCYTES 0.5 % (0-5); LYMPHOCYTES 12.8 % (15-50); MCH 27.9 pg (26.0-34.0); MCHC 32.9 g/dL (31.0-37.0); MCV 84.7 fL (80.0-100.0); MEAN PLATELET VOLUME 9.7 fL (7.4-10.4); RBC 3.66 10x6/uL (4.00-5.40); RDW 21.4 % (11.5-14.5); WBC 4.1 10x3/uL (4.8-10.8)
[2017-12-28 17:06] LABS: PLATELET COUNT 352 10x3/uL (130-400)
[2017-12-28 18:06] LABS: ERYTHROCYTE SEDIMENTATION RATE 32 mm/hr (0-30)
== END | disposition home or self-care (01) ==
LOC: D.LAB 15:45
PROVIDERS: Orthopaedic Surgery
DX: S71.002A Unspecified open wound, left hip, initial encounter (principal)

== ENCOUNTER 2018-01-03 12:30 | Inpatient (IN) | payer BC ==
[2017-12-31 12:52] LABS: HEMATOCRIT 28.9 % (36.0-48.0); HEMOGLOBIN 9.1 g/dL (12-16); MCH 27.2 pg (26.0-34.0); MCHC 31.5 g/dL (31.0-37.0); MCV 86.5 fL (80.0-100.0); MEAN PLATELET VOLUME 9.2 fL (7.4-10.4); RBC 3.34 10x6/uL (4.00-5.40); RDW 21.3 % (11.5-14.5); WBC 4.3 10x3/uL (4.8-10.8)
[2017-12-31 13:04] LABS: APTT 30.5 SECONDS (22.8-39.4); INR 1.14 (0.85-1.17); PROTIME 14.2 SECONDS (11.6-15.0)
[2017-12-31 13:07] LABS: ANION GAP 12.3 mmol/L (8-16); CALCIUM 9.2 mg/dL (8.5-10.1); CARBON DIOXIDE 26.6 mmol/L (21.0-32.0); POTASSIUM - SERUM 3.9 mmol/L (3.5-5.1)
[2018-01-03] VITALS (10 sets, daily range): BP systolic 104–159; BP diastolic 55–96; BMI 40.4
[~2018-01-03] VITALS: Ht 167.6 cm; Wt 113.4 kg
--- NOTE | ~2018-01-03 | OP ---
PATIENT NAME: ESTRADA BARR MEDICAL RECORD: [id number] :59 LOCATION:D.[facility] [place] ADMISSION DATE:01/03/18 SURGEON: TIFFANY CRAWFORD MD DATE OF OPERATION: 01/12/2018 PREOPERATIVE DIAGNOSIS: Infected total hip arthroplasty. POSTOPERATIVE DIAGNOSIS: Infected total hip arthroplasty. PROCEDURE: Removal of previously placed total hip with placement of antibiotic cement spacer. Surgeon: Tiffany Crawford MD ANESTHESIA: General. INTRAOPERATIVE COMPLICATIONS: Slight calcar fracture on extraction. OPERATIVE SUMMARY IN DETAIL: After obtaining the appropriate preoperative orthopedic surgery consent as well as anesthetic consultation, evaluation and clearance, the patient was brought to the operating room and placed on the operating table in supine position. After general laryngeal mask was administered, the patient was placed in a right lateral decubitus position. All pressure points were well padded to include down leg peroneal pad as well as axillary roll. The patient was held firmly to the operating table using vacuum pack suction system. Wound VAC was removed. The hip was prepped and draped in a routine sterile fashion. The incision was elongated proximally and distally and dissection was carried down to the prosthesis whereupon the exposed neck of the prosthesis was found. The hip was dislocated. Femoral neck was removed and then with a mild degree of difficulty, the stem was removed causing a small fracture of the greater trochanter, but not unstable. Attention was then turned to the hip. Polyethylene was removed followed by removal of screws. The acetabular component came out very easily likely the source for the infection. Cultures were taken off the backside of this prosthetic device and sent for Gram stain, aerobic and anaerobic cultures. Clean out consisted continued reaming as well as curettage and rongeur debridement of every nonviable-appearing piece of tissue. Pulsatile lavage irrigation was then completed and the cement spacer was created on the back field and reduced. The hip was then closed in multiple layers with 2-0 Ethibond followed by #1 Vicryl and skin amber. Sterile dressings were applied. The patient was awakened and taken to recovery in stable condition. All final needle and sponge counts were correct. TRANSINT:[id number] Voice Confirmation ID: [id number] DOCUMENT ID: [id number] TIFFANY CRAWFORD MD at 1604 CC: [id number] DICTATION DATE: 01/12/18 1433 RUNNER WORKER: 01/12/18 1530 ADM IN [place] [id number] [facility], [facility]
--- NOTE | ~2018-01-03 | OP ---
PATIENT NAME: ESTRADA BARR MEDICAL RECORD: [id number] :59 LOCATION:D.[facility] [place] ADMISSION DATE:01/03/18 SURGEON: TIFFANY CRAWFORD MD DATE OF OPERATION: 01/03/2018 PREOPERATIVE DIAGNOSIS: Small draining wound, status post revision total hip arthroplasty. POSTOPERATIVE DIAGNOSIS: Infected total hip. PROCEDURES: 1. Excisional debridement of the wound to include skin, some portions of fat, fascia, muscle, and bone; approximately 60 cm in average. 2. Wound VAC placement. SURGEON: Tiffany Crawford MD ANESTHESIA: General. INTRAOPERATIVE COMPLICATIONS: None. SUMMARY OF PATHOLOGIC FINDINGS: Upon entering the area, it was thought to be a very small pus pocket. It tracked all the way down to the prosthesis itself. The prosthesis was visible and scraped. Cultures were taken. OPERATIVE SUMMARY IN DETAIL: After obtaining the appropriate preoperative orthopedic surgery consent as well as anesthetic consultation, evaluation, and clearance, the patient was brought to the operating room and placed on the operating table in supine position. After general laryngeal mask airway was administered, the patient was placed in a right lateral decubitus position. All pressure points were well padded to include down leg peroneal pad. The patient's left lower extremity and hip were then prepped and draped in routine sterile fashion. A small incision was made and unfortunately this was found to undermine both distally and proximally. The incision was elongated. At this point, it was very obvious that the infection was not small. Serial curettage, rongeur, and scalpel debridement were utilized, and as tissue was taken out with a large curette, it tracked all the way to the lateral edge of the prosthesis. Serial and sequential debridement was done followed by pulsatile lavage irrigation. A wound VAC was put into place at 125 of continuous suction with medium intensity. The patient was awakened and taken to recovery room in stable condition. All final needle and sponge counts were correct. TRANSINT:[id number] Voice Confirmation ID: [id number] DOCUMENT ID: [id number] TY LIMA, TIFFANY GAMBOA at 0827 CC: [id number] DICTATION DATE: 01/05/18 1627 RADIOLOGY CLERK: 01/05/18 1704 [place] [address]
--- NOTE | ~2018-01-03 | OP ---
PATIENT NAME: ESTRADA BARR MEDICAL RECORD: [id number] :59 LOCATION:D[facility] [place] ADMISSION DATE:01/03/18 SURGEON: TIFFANY CRAWFORD MD DATE OF OPERATION: 01/17/2018 PREOPERATIVE DIAGNOSIS: Periprosthetic hip fracture (spacer fracture) that is the patient broke her hip about a cement spacer. POSTOPERATIVE DIAGNOSIS: Periprosthetic hip fracture (spacer fracture) that is the patient broke her hip about a cement spacer. PROCEDURE: Replacement of cement spacer with open reduction internal fixation of the fracture. SURGEON: Tiffany Crawford MD ANESTHESIA: General. INTRAOPERATIVE COMPLICATIONS: None. SUMMARY OF PATHOLOGIC FINDINGS: The patient's left hip spacer for infection fractured to the lateral cortex and caused substantial foreshortening of her hip. This required revision cement spacer surgery. OPERATIVE SUMMARY IN DETAIL: After obtaining the appropriate preoperative orthopedic surgery consent as well as anesthetic consultation, evaluation, and clearance, the patient was brought to the operating room and placed on the operating table in supine position. After general laryngeal mask airway was administered, the patient was placed in a right lateral decubitus position. All pressure points were well padded to include down leg peroneal pad as well as axillary roll. The patient was held firmly on the operating table using the vacuum pack suction system. The left lower extremity and hip were then prepped and draped in routine sterile fashion. Incision was then carried down to the IT band, which was split down to the gluteus medius and minimus. Fracture was evaluated. Previously placed cement spacer was taken out. Pulsatile lavage irrigation was carried out thoroughly. Then, the much longer cement spacer was placed and reduced. Next, FiberWire fixation was utilized to reapproximate the bone of the proximal cortex of the femur for internal fixation. Multilayer closure was then followed by final staple closure. Sterile dressings were applied. The patient was awakened, taken to recovery room in stable condition. All final needle and sponge counts were correct. TRANSINT:[id number] Voice Confirmation ID: [id number] DOCUMENT ID: [id number] TIFFANY CRAWFORD MD at 1225 CC: [id number] DICTATION DATE: 03/03/18 0954 PAINT FORMULATOR: 03/03/18 1110 DIS IN 01/21/18 [facility] [address] [place] [address]
[~2018-01-03 12:30] MED LIST changes: -DILAUDID 012 MG/30 M IV; -FERRLECIT62.5 MG/2; -KLONOPIN0.5 MG PO; -LASIX40 MG PO; -RIFADIN300 MG PO; -RIMACTANE300 MG PO; -SOMA350 MG PO; -VANCOMYCIN 1 GM/1 G1 IV; -VIBRAMYCIN 100100 MG PO
[2018-01-04] VITALS (19 sets, daily range): BP systolic 103–129; BP diastolic 55–76
[2018-01-04 06:18] LABS: HEMATOCRIT 22.4 % (36.0-48.0)
[2018-01-04 06:43] LABS: HEMOGLOBIN 6.9 g/dL (12-16)
[2018-01-05 04:00] VITALS: BP 131/71
[2018-01-05 05:11] LABS: HEMATOCRIT 28.3 % (36.0-48.0); HEMOGLOBIN 8.7 g/dL (12-16)
[2018-01-05 08:03] VITALS: BP 131/65
[2018-01-05 11:56] VITALS: BP 128/75
[2018-01-05 17:02] VITALS: BP 129/84
[2018-01-05 20:00] VITALS: BP 172/85
[2018-01-06] VITALS: BP 113/70
[2018-01-06 04:00] VITALS: BP 136/70
[2018-01-06 04:37] LABS: BASOPHILS 0.5 % (0-2); HEMATOCRIT 30.5 % (36.0-48.0); HEMOGLOBIN 9.3 g/dL (12-16); IMMATURE GRANULOCYTES 0.5 % (0-5); LYMPHOCYTES 18.1 % (15-50); MCH 27.8 pg (26.0-34.0); MCHC 30.5 g/dL (31.0-37.0); MEAN PLATELET VOLUME 10.3 fL (7.4-10.4); MONOCYTES 16.9 % (2-11); RBC 3.35 10x6/uL (4.00-5.40); RDW 21.2 % (11.5-14.5); WBC 4.1 10x3/uL (4.8-10.8)
[2018-01-06 04:40] LABS: PLATELET COUNT 249 10x3/uL (130-400)
[2018-01-06 04:47] LABS: CALCIUM 8.1 mg/dL (8.5-10.1); CARBON DIOXIDE 26.1 mmol/L (21.0-32.0); CREATININE - SERUM 0.9 mg/dL (0.6-1.3); POTASSIUM - SERUM 4.1 mmol/L (3.5-5.1)
[2018-01-06 09:20] VITALS: BP 125/71
[2018-01-06 13:17] VITALS: BP 129/78
[2018-01-06 17:38] VITALS: BP 130/76
[2018-01-06 20:00] VITALS: BP 132/68
[2018-01-07] VITALS: BP 136/68
[2018-01-07 04:00] VITALS: BP 146/80
[2018-01-07 08:05] VITALS: BP 150/75
[2018-01-07 11:45] LABS: ALBUMIN 2.4 g/dL (3.4-5.0); BILIRUBIN - DIRECT 0.13 mg/dL (0.00-0.30); BILIRUBIN - INDIRECT 0.34 mg/dL (0.00-1.00); BILIRUBIN - TOTAL 0.47 mg/dL (0.2-1.3); PROTEIN - SERUM 6.6 g/dL (6.4-8.2)
[2018-01-07 12:05] VITALS: BP 153/81
[2018-01-07 17:02] VITALS: BP 146/73
[2018-01-08 02:45] VITALS: BP 113/65
[2018-01-08 04:32] VITALS: BP 108/65
[2018-01-08 08:20] VITALS: BP 135/71
[2018-01-08 12:27] VITALS: BP 107/60
[2018-01-08 15:18] VITALS: BP 108/57
[2018-01-08 22:58] VITALS: BP 126/79
[2018-01-09 01:21] VITALS: BP 105/52
[2018-01-09 05:09] LABS: HEMATOCRIT 28.7 % (36.0-48.0); HEMOGLOBIN 8.7 g/dL (12-16); MCH 27.5 pg (26.0-34.0); MCHC 30.3 g/dL (31.0-37.0); MCV 90.8 fL (80.0-100.0); MEAN PLATELET VOLUME 10.5 fL (7.4-10.4); RBC 3.16 10x6/uL (4.00-5.40); RDW 20.9 % (11.5-14.5); WBC 2.9 10x3/uL (4.8-10.8)
[2018-01-09 05:21] LABS: ANION GAP 11.7 mmol/L (8-16); CARBON DIOXIDE 26.2 mmol/L (21.0-32.0); CREATININE - SERUM 0.9 mg/dL (0.6-1.3); POTASSIUM - SERUM 3.9 mmol/L (3.5-5.1)
[2018-01-09 05:44] VITALS: BP 124/54
[2018-01-09 08:32] VITALS: BP 145/76
[2018-01-09 23:07] VITALS: BP 110/54
[2018-01-10 04:07] LABS: BASOPHILS 2.3 % (0-2); EOSINOPHILS 3.9 % (0-7); HEMATOCRIT 31.4 % (36.0-48.0); HEMOGLOBIN 9.5 g/dL (12-16); IMMATURE GRANULOCYTES 0.3 % (0-5); LYMPHOCYTES 30.8 % (15-50); MCH 27.9 pg (26.0-34.0); MCHC 30.3 g/dL (31.0-37.0); MCV 92.1 fL (80.0-100.0); MEAN PLATELET VOLUME 11.1 fL (7.4-10.4); MONOCYTES 22.1 % (2-11); NEUTROPHILS 40.6 % (40-80); PLATELET COUNT 236 10x3/uL (130-400); RBC 3.41 10x6/uL (4.00-5.40); RDW 21.1 % (11.5-14.5); WBC 3.1 10x3/uL (4.8-10.8)
[2018-01-10 04:21] LABS: CALC OSMOLALITY 271 mosm/kg (275-300); CALCIUM 8.9 mg/dL (8.5-10.1); CARBON DIOXIDE 23.9 mmol/L (21.0-32.0); CHLORIDE - SERUM 103 mmol/L (98-107); CREATININE - SERUM 0.8 mg/dL (0.6-1.3); GLUCOSE 82 mg/dL (74-106); POTASSIUM - SERUM 4.1 mmol/L (3.5-5.1); SODIUM 136 mmol/L (136-145); UREA NITROGEN 16 mg/dL (7-18); eGFR NON AFRICAN AMERICAN 77 mL/min (90-120)
[2018-01-10 05:06] VITALS: BP 133/70
[2018-01-10 08:11] VITALS: BP 130/67
[2018-01-10 12:21] VITALS: BP 117/38
[2018-01-10 20:38] VITALS: BP 138/61
[2018-01-11 00:44] VITALS: BP 121/74
[2018-01-11 04:31] LABS: BASOPHILS 2.5 % (0-2); HEMATOCRIT 30.8 % (36.0-48.0); HEMOGLOBIN 9.4 g/dL (12-16); IMMATURE GRANULOCYTES 0.4 % (0-5); LYMPHOCYTES 19.2 % (15-50); MCH 28.3 pg (26.0-34.0); MCHC 30.5 g/dL (31.0-37.0); MCV 92.8 fL (80.0-100.0); MEAN PLATELET VOLUME 11.1 fL (7.4-10.4); MONOCYTES 26.7 % (2-11); NEUTROPHILS 46.2 % (40-80); PLATELET COUNT 255 10x3/uL (130-400); RBC 3.32 10x6/uL (4.00-5.40); RDW 20.6 % (11.5-14.5); WBC 2.8 10x3/uL (4.8-10.8)
[2018-01-11 04:43] LABS: CALC OSMOLALITY 276 mosm/kg (275-300); CALCIUM 8.1 mg/dL (8.5-10.1); CARBON DIOXIDE 26.3 mmol/L (21.0-32.0); CHLORIDE - SERUM 105 mmol/L (98-107); CREATININE - SERUM 0.8 mg/dL (0.6-1.3); GLUCOSE 73 mg/dL (74-106); POTASSIUM - SERUM 3.7 mmol/L (3.5-5.1); SODIUM 139 mmol/L (136-145); UREA NITROGEN 12 mg/dL (7-18); eGFR NON AFRICAN AMERICAN 77 mL/min (90-120)
[2018-01-11 08:19] VITALS: BP 124/70
[2018-01-11 16:03] VITALS: BP 115/54
[2018-01-11 22:18] VITALS: BP 122/59
[2018-01-12 04:29] VITALS: BP 157/52
[2018-01-12 04:51] LABS: BASOPHILS 1.7 % (0-2); EOSINOPHILS 5.2 % (0-7); IMMATURE GRANULOCYTES 0.3 % (0-5); LYMPHOCYTES 27.6 % (15-50); MCH 27.6 pg (26.0-34.0); MEAN PLATELET VOLUME 11.3 fL (7.4-10.4); MONOCYTES 23.1 % (2-11); NEUTROPHILS 42.1 % (40-80); PLATELET COUNT 245 10x3/uL (130-400); RBC 3.26 10x6/uL (4.00-5.40); RDW 20.1 % (11.5-14.5); WBC 2.9 10x3/uL (4.8-10.8)
[2018-01-12 05:09] LABS: CALC OSMOLALITY 276 mosm/kg (275-300); CALCIUM 8.3 mg/dL (8.5-10.1); CARBON DIOXIDE 24.6 mmol/L (21.0-32.0); CHLORIDE - SERUM 105 mmol/L (98-107); CREATININE - SERUM 0.8 mg/dL (0.6-1.3); GLUCOSE 83 mg/dL (74-106); POTASSIUM - SERUM 3.8 mmol/L (3.5-5.1); SODIUM 139 mmol/L (136-145); UREA NITROGEN 12 mg/dL (7-18); VANCOMYCIN - TROUGH 20.6 ug/mL (10.0-20.0); eGFR NON AFRICAN AMERICAN 77 mL/min (90-120)
[2018-01-12 09:16] VITALS: BP 110/62
[2018-01-12 15:05] LABS: HEMATOCRIT 27.2 % (36.0-48.0); HEMOGLOBIN 8.3 g/dL (12-16)
[2018-01-12 15:53] VITALS: BP 141/62
[2018-01-12 22:34] LABS: HEMATOCRIT 27.4 % (36.0-48.0); HEMOGLOBIN 8.3 g/dL (12-16)
[2018-01-13 01:38] VITALS: BP 100/65
[2018-01-13 04:42] VITALS: BP 128/68
[2018-01-13 04:43] LABS: EOSINOPHILS 0.8 % (0-7); HEMATOCRIT 27.2 % (36.0-48.0); HEMOGLOBIN 8.3 g/dL (12-16); IMMATURE GRANULOCYTES 0.4 % (0-5); LYMPHOCYTES 15.1 % (15-50); MCH 27.5 pg (26.0-34.0); MCHC 30.5 g/dL (31.0-37.0); MCV 90.1 fL (80.0-100.0); MEAN PLATELET VOLUME 10.8 fL (7.4-10.4); MONOCYTES 19.1 % (2-11); NEUTROPHILS 63.6 % (40-80); PLATELET COUNT 238 10x3/uL (130-400); RBC 3.02 10x6/uL (4.00-5.40); RDW 19.5 % (11.5-14.5); WBC 4.8 10x3/uL (4.8-10.8)
[2018-01-13 05:03] LABS: CALC OSMOLALITY 270 mosm/kg (275-300); CARBON DIOXIDE 25.5 mmol/L (21.0-32.0); CHLORIDE - SERUM 103 mmol/L (98-107); CREATININE - SERUM 0.8 mg/dL (0.6-1.3); GLUCOSE 121 mg/dL (74-106); POTASSIUM - SERUM 3.7 mmol/L (3.5-5.1); SODIUM 136 mmol/L (136-145); eGFR NON AFRICAN AMERICAN 77 mL/min (90-120)
[2018-01-13 05:04] LABS: UREA NITROGEN 7 mg/dL (7-18)
[2018-01-13 09:37] VITALS: BP 109/64
[2018-01-13 12:20] VITALS: BP 97/51
[2018-01-13 17:05] VITALS: BP 123/67
[2018-01-13 21:39] VITALS: BP 120/51
[2018-01-14 04:52] LABS: BASOPHILS 0.7 % (0-2); EOSINOPHILS 1.2 % (0-7); HEMATOCRIT 23.4 % (36.0-48.0); IMMATURE GRANULOCYTES 0.3 % (0-5); LYMPHOCYTES 16.2 % (15-50); MCH 27.9 pg (26.0-34.0); MCHC 31.6 g/dL (31.0-37.0); MCV 88.3 fL (80.0-100.0); MEAN PLATELET VOLUME 10.5 fL (7.4-10.4); MONOCYTES 23.9 % (2-11); NEUTROPHILS 57.7 % (40-80); PLATELET COUNT 195 10x3/uL (130-400); RBC 2.65 10x6/uL (4.00-5.40); WBC 5.9 10x3/uL (4.8-10.8)
[2018-01-14 04:53] LABS: HEMOGLOBIN 7.4 g/dL (12-16)
[2018-01-14 05:34] VITALS: BP 95/51
[2018-01-14 07:55] VITALS: BP 90/36
[2018-01-14 11:49] VITALS: BP 109/49
[2018-01-14 15:37] VITALS: BP 111/56
[2018-01-14 22:49] VITALS: BP 135/66
[2018-01-15 02:50] VITALS: BP 157/47
[2018-01-15 05:07] LABS: MCHC 31.8 g/dL (31.0-37.0); MCV 88.2 fL (80.0-100.0); WBC 5.1 10x3/uL (4.8-10.8)
[2018-01-15 05:16] LABS: RBC 3.21 10x6/uL (4.00-5.40)
[2018-01-15 05:17] LABS: HEMATOCRIT 28.3 % (36.0-48.0)
[2018-01-15 05:31] LABS: ANION GAP 12.9 mmol/L (8-16); CALCIUM 7.8 mg/dL (8.5-10.1); CARBON DIOXIDE 25.2 mmol/L (21.0-32.0); POTASSIUM - SERUM 3.1 mmol/L (3.5-5.1)
[2018-01-15 05:54] VITALS: BP 113/65
[2018-01-15 07:41] VITALS: BP 123/90
[2018-01-15 11:10] VITALS: BP 123/71
[2018-01-15 15:16] VITALS: BP 136/82
[2018-01-15 22:24] VITALS: BP 131/70
[2018-01-16 02:24] VITALS: BP 158/74
[2018-01-16 05:25] VITALS: BP 107/57
[2018-01-16 08:00] VITALS: BP 126/66
[2018-01-16 11:30] VITALS: BP 122/68
[2018-01-16 15:30] VITALS: BP 112/53
[2018-01-16 21:51] VITALS: BP 93/47
[2018-01-17 01:33] VITALS: BP 106/96
[2018-01-17 05:05] VITALS: BP 124/48
[2018-01-17 08:16] LABS: HEMATOCRIT 28.7 % (36.0-48.0); HEMOGLOBIN 8.9 g/dL (12-16); MCH 27.9 pg (26.0-34.0); MEAN PLATELET VOLUME 10.7 fL (7.4-10.4); RBC 3.19 10x6/uL (4.00-5.40); WBC 3.1 10x3/uL (4.8-10.8)
[2018-01-17 08:37] LABS: ANION GAP 11.4 mmol/L (8-16); CALCIUM 8.3 mg/dL (8.5-10.1); CARBON DIOXIDE 26.8 mmol/L (21.0-32.0); CREATININE - SERUM 0.9 mg/dL (0.6-1.3); POTASSIUM - SERUM 4.2 mmol/L (3.5-5.1)
[2018-01-17 09:38] VITALS: BP 121/58
[2018-01-17 15:04] VITALS: BP 126/66
[2018-01-17 17:31] LABS: HEMATOCRIT 32.8 % (36.0-48.0); HEMOGLOBIN 10.4 g/dL (12-16)
[2018-01-17 17:51] VITALS: BP 172/84
[2018-01-17 23:59] VITALS: BP 149/71
[2018-01-18 04:17] VITALS: BP 119/60
[2018-01-18 08:40] VITALS: BP 125/62
[2018-01-18 09:02] LABS: HEMATOCRIT 30.6 % (36.0-48.0); HEMOGLOBIN 9.5 g/dL (12-16); MCH 28.1 pg (26.0-34.0); MCV 90.5 fL (80.0-100.0); MEAN PLATELET VOLUME 10.7 fL (7.4-10.4); RBC 3.38 10x6/uL (4.00-5.40); RDW 17.6 % (11.5-14.5)
[2018-01-18 09:13] LABS: ANION GAP 11.6 mmol/L (8-16); CALCIUM 8.2 mg/dL (8.5-10.1); CARBON DIOXIDE 26.3 mmol/L (21.0-32.0); CREATININE - SERUM 0.9 mg/dL (0.6-1.3); POTASSIUM - SERUM 3.9 mmol/L (3.5-5.1)
[2018-01-18 13:03] VITALS: BP 132/61
[2018-01-18 15:15] VITALS: BMI 40.3
[2018-01-18 16:59] VITALS: BP 122/60
[2018-01-18 20:22] VITALS: BP 122/64
[2018-01-19 00:23] VITALS: BP 110/57
[2018-01-19 05:11] LABS: HEMATOCRIT 28.6 % (36.0-48.0); HEMOGLOBIN 8.9 g/dL (12-16); MCH 28.1 pg (26.0-34.0); MCHC 31.1 g/dL (31.0-37.0); MCV 90.2 fL (80.0-100.0); MEAN PLATELET VOLUME 10.6 fL (7.4-10.4); PLATELET COUNT 237 10x3/uL (130-400); RBC 3.17 10x6/uL (4.00-5.40); RDW 17.7 % (11.5-14.5); WBC 3.7 10x3/uL (4.8-10.8)
[2018-01-19 05:37] LABS: ANION GAP 11.1 mmol/L (8-16); C-REACTIVE PROTEIN 4.2 mg/dL (0.0-0.9); CALCIUM 8.1 mg/dL (8.5-10.1); CARBON DIOXIDE 25.6 mmol/L (21.0-32.0); POTASSIUM - SERUM 3.7 mmol/L (3.5-5.1)
[2018-01-19 06:25] LABS: ERYTHROCYTE SEDIMENTATION RATE 54 mm/hr (0-30)
[2018-01-19 08:30] VITALS: BP 138/70
[2018-01-19 12:51] VITALS: Ht 167.6 cm; Wt 113.4 kg
[2018-01-19 16:21] VITALS: BP 148/58; BMI 28.4
[2018-01-19 17:23] VITALS: BP 112/61
[2018-01-19 21:18] VITALS: BP 107/60
[2018-01-20 04:09] VITALS: BP 104/57
[2018-01-20 06:14] LABS: FOLATE (FOLIC ACID) - SERUM 12.2 ng/mL (>3.0)
[2018-01-20 08:31] VITALS: BP 120/68
[2018-01-20 13:03] VITALS: BP 122/40
[2018-01-20 16:28] VITALS: BP 127/57; BP 156/53
[2018-01-20 20:55] VITALS: BP 115/37
[2018-01-20 23:17] VITALS: BP 108/44
[2018-01-21 04:24] VITALS: BP 115/58
[2018-01-21 08:10] VITALS: BP 120/66
[2018-01-21] MEDS ORDERED: RIMACTANE300 MG PO (10:27)
[2018-01-21] MEDS ORDERED: VANCOMYCIN 1 GM/1 G1 IV (10:28)
[2018-01-21] MEDS ORDERED: SOMA350 MG PO (10:30)
[2018-01-21] MEDS ORDERED: ELIQUIS2.5 MG PO (10:30)
[2018-01-21] MEDS ORDERED: DURAGESIC1 PATCH .7 TRANSDERM (10:33)
[2018-01-21] MEDS ORDERED: DILAUDID 012 MG/30 M IV (10:35)
[2018-01-21] MEDS ORDERED: FERRLECIT62.5 MG/2 (10:40)
[2018-01-21 11:57] VITALS: BP 123/67
== END 2018-01-21 13:33 | disposition short-term general hospital (02) | DRG 464 ==
LOC: D.SDCHOLD 12:30 → D.MS 13:05 → D.SDCHOLD 14:30 → D.MS 18:02
PROVIDERS: Anesthesiology; Internal Medicine Hematology & Oncology; Orthopaedic Surgery; Student in an Organized Health Care Education/Training Program
PROC: 0JBL0ZZ Excision of Right Upper Leg Subcutaneous Tissue and Fascia, Open Approach (ICD-10-PCS; principal; 2018-01-03 12:30)
PROC: 0SPB0JZ Removal of Synthetic Substitute from Left Hip Joint, Open Approach (ICD-10-PCS; 2018-01-12)
PROC: 0SHB08Z Insertion of Spacer into Left Hip Joint, Open Approach (ICD-10-PCS; 2018-01-12)
PROC: 0QS704Z Reposition Left Upper Femur with Internal Fixation Device, Open Approach (ICD-10-PCS; 2018-01-17)
PROC: 02H633Z Insertion of Infusion Device into Right Atrium, Percutaneous Approach (ICD-10-PCS; 2018-01-19)
PROC: B244ZZZ Ultrasonography of Right Heart (ICD-10-PCS; 2018-01-19)
DX: T84.51XA Infection and inflammatory reaction due to internal right hip prosthesis, initial encounter (principal); D62 Acute posthemorrhagic anemia; Z68.41 Body mass index [BMI] 40.0-44.9, adult; M62.838 Other muscle spasm; D72.819 Decreased white blood cell count, unspecified; E87.6 Hypokalemia; M97.02XA Periprosthetic fracture around internal prosthetic left hip joint, initial encounter; I10 Essential (primary) hypertension; F32.9 Major depressive disorder, single episode, unspecified; M79.7 Fibromyalgia; F41.9 Anxiety disorder, unspecified; R60.9 Edema, unspecified; B95.62 Methicillin resistant Staphylococcus aureus infection as the cause of diseases classified elsewhere; E66.9 Obesity, unspecified

== ENCOUNTER 2018-02-28 15:12 | Inpatient (IN) | payer BC ==
[~2018-02-28] VITALS: Ht 167.6 cm; Wt 90.7 kg
--- NOTE | ~2018-02-28 | OP ---
PATIENT NAME: ESTRADA BARR MEDICAL RECORD: [id number] :57 LOCATION:D[facility] [place] ADMISSION DATE:02/28/18 SURGEON: TIFFANY CRAWFORD MD DATE OF OPERATION: 03/03/2018 PREOPERATIVE DIAGNOSIS: Prior infected left total hip. POSTOPERATIVE DIAGNOSIS: Prior infected left total hip. PROCEDURES: 1. Revision left total hip arthroplasty. 2. Removal of previously placed cement spacer. SURGEON: Tiffany Crawford MD ANESTHESIA: General. INTRAOPERATIVE COMPLICATIONS: Essentially none. SUMMARY OF PATHOLOGIC FINDINGS: Essentially none. While there was copious amounts of scar tissue, intraoperative cultures were taken at the level of the cement spacer itself. Preliminary results of Gram stain was negative. IMPLANTS USED: Restorationism modular revision total hip with the Tritanium multi-hole cup. The size of the acetabulum was 58 with 3 screws placed for added stability. The polyethylene liner was a 40-mm alpha code F. Rest mod hip stem length was 195 x 19 with a size 21+10 proximal body and finally the femoral head was a 40-mm +8. OPERATIVE SUMMARY IN DETAIL: After obtaining the appropriate preoperative surgery consent as well as anesthetic consultation, evaluation and clearance, the patient was brought to the operating room and placed on the operating table in supine position. After general endotracheal anesthesia was administered, the patient was placed in a right lateral decubitus position. All pressure points were well padded. She was held firmly to the operating table using the vacuum pack suction system. Left lower extremity and hip were then prepped and draped in routine sterile fashion. Gentle dissection was carried down to the IT band, which was split in line with fibers of the IT band. Dissection was then carried down to the anterior aspect of the residual calcar. At this point, the cement spacer was visualized, identified, and very gently removed. Just before removal; however, cultures were taken and sent to the lab for stat Gram stain, aerobic and anaerobic cultures. At this point, substantial irrigation was then followed by complete exposure of the acetabulum. Acetabulum was reamed to a size 57. Good capture was achieved with the poly hole multi-hole cup, 3 screws were then placed directly superior with excellent capture that being a 45, a second 45, and a 35. The 40 mm cup was then snapped into place and checked with a Daphney. Attention was then turned to the femur. Serial and sequential reaming was done to a size 19. The size 19 jew modular stem was then tamped into place. Trials were undertaken with the proximal body and it was felt that the +10 was the most appropriate proximal body and the proximal body was then tamped to Dowell taper stem with the set screw. Trials were undertaken again with the heads and +8 head was the most appropriate in this maneuver. The 40 mm Dowell taper head was then tamped into the Dowell taper and the hip was reduced, taken through range of motion. Intraoperative radiographs were taken that showed good position and placement of all components and much jew OPERATIVE REPORT [id number] ESTRADA BARR of the patient's leg length discrepancy. The wound was again copiously irrigated and then coated with Vitagel. Deep to superficial closure was achieved with #5 Ethibond followed by #2 Ethibond followed by #1 Vicryl followed by #2 Prolene and [id number] sutures as a precautionary measure as this patient has had multiple incisions over the hip. Finally, a Prevena dressing was then placed. At this point, the patient was awakened and taken to recovery room in stable condition. All final sponge and needle counts were correct. TRANSINT:[id number] Voice Confirmation ID: [id number] DOCUMENT ID: [id number] TY LIMA, TIFFANY GAMBOA at 1117 CC: [id number] DICTATION DATE: 03/03/181818 CASKET ASSEMBLER: 03/03/181951 ADM IN [facility] [address] [place] [address]
[~2018-02-28 15:12] MED LIST changes: +DILAUDID 012 MG/30 M IV; +FERRLECIT62.5 MG/2; +RIMACTANE300 MG PO; +SOMA350 MG PO; +VANCOMYCIN 1 GM/1 G1 IV
[2018-02-28 16:00] VITALS: BP 142/78
[2018-02-28 16:41] LABS: BASOPHILS 2.1 % (0-2); EOSINOPHILS 3.4 % (0-7); HEMOGLOBIN 10.5 g/dL (12-16); IMMATURE GRANULOCYTES 0.3 % (0-5); LYMPHOCYTES 19.9 % (15-50); MCH 29.4 pg (26.0-34.0); MCHC 31.8 g/dL (31.0-37.0); MCV 92.4 fL (80.0-100.0); MEAN PLATELET VOLUME 10.7 fL (7.4-10.4); MONOCYTES 14.6 % (2-11); NEUTROPHILS 59.7 % (40-80); PLATELET COUNT 192 10x3/uL (130-400); RBC 3.57 10x6/uL (4.00-5.40); RDW 16.4 % (11.5-14.5); WBC 3.8 10x3/uL (4.8-10.8)
[2018-02-28 17:05] LABS: CALC OSMOLALITY 283 mosm/kg (275-300); CALCIUM 8.3 mg/dL (8.5-10.1); CARBON DIOXIDE 24.9 mmol/L (21.0-32.0); CHLORIDE - SERUM 107 mmol/L (98-107); CREATININE - SERUM 0.8 mg/dL (0.6-1.3); GLUCOSE 96 mg/dL (74-106); POTASSIUM - SERUM 4.4 mmol/L (3.5-5.1); SODIUM 140 mmol/L (136-145); UREA NITROGEN 27 mg/dL (7-18); eGFR NON AFRICAN AMERICAN 77 mL/min (90-120)
[2018-02-28 17:56] LABS: ERYTHROCYTE SEDIMENTATION RATE 16 mm/hr (0-30)
[2018-02-28 22:09] VITALS: BP 140/66
[2018-03-01] VITALS (7 sets, daily range): BP systolic 104–140; BP diastolic 49–77; Ht 167.6 cm; Wt 90.7 kg
[2018-03-02 00:25] VITALS: BP 111/60
[2018-03-02 04:21] VITALS: BP 128/64
[2018-03-02 08:37] VITALS: BP 130/71
[2018-03-02 12:01] VITALS: BP 124/66
[2018-03-02 16:24] VITALS: BP 142/59
[2018-03-02 20:00] VITALS: BP 125/61
[2018-03-03] VITALS (12 sets, daily range): BP systolic 106–148; BP diastolic 53–80
[2018-03-03 04:47] LABS: HEMATOCRIT 31.2 % (36.0-48.0); HEMOGLOBIN 9.7 g/dL (12-16); MCH 28.7 pg (26.0-34.0); MCHC 31.1 g/dL (31.0-37.0); MCV 92.3 fL (80.0-100.0); MEAN PLATELET VOLUME 10.7 fL (7.4-10.4); RBC 3.38 10x6/uL (4.00-5.40); RDW 16.3 % (11.5-14.5); WBC 2.9 10x3/uL (4.8-10.8)
[2018-03-03 05:14] LABS: CALC OSMOLALITY 280 mosm/kg (275-300); CALCIUM 8.7 mg/dL (8.5-10.1); CARBON DIOXIDE 23.3 mmol/L (21.0-32.0); CHLORIDE - SERUM 108 mmol/L (98-107); CREATININE - SERUM 0.8 mg/dL (0.6-1.3); GLUCOSE 88 mg/dL (74-106); POTASSIUM - SERUM 4.2 mmol/L (3.5-5.1); SODIUM 139 mmol/L (136-145); UREA NITROGEN 24 mg/dL (7-18); eGFR NON AFRICAN AMERICAN 77 mL/min (90-120)
[2018-03-04] VITALS: BP 113/59
[2018-03-04 04:00] VITALS: BP 98/57
[2018-03-04 08:18] VITALS: BP 111/49
[2018-03-04 11:22] LABS: HEMATOCRIT 27.6 % (36.0-48.0); HEMOGLOBIN 8.7 g/dL (12-16); MCHC 31.5 g/dL (31.0-37.0); MEAN PLATELET VOLUME 10.2 fL (7.4-10.4)
[2018-03-04 12:26] VITALS: BP 122/50
[2018-03-04 16:04] VITALS: BP 118/50
[2018-03-04 19:57] VITALS: BP 122/86
[2018-03-05] VITALS: BP 105/59
[2018-03-05 04:00] VITALS: BP 110/65
[2018-03-05 09:30] VITALS: BP 93/57
[2018-03-05 13:40] VITALS: BP 110/66
[2018-03-05 16:00] VITALS: BP 102/61; BP 111/62
[2018-03-05 20:00] VITALS: BP 99/53
[2018-03-06 04:00] VITALS: BP 101/55
[2018-03-06 06:01] LABS: HEMATOCRIT 25.6 % (36.0-48.0); MCH 28.8 pg (26.0-34.0); MCHC 31.3 g/dL (31.0-37.0); MCV 92.1 fL (80.0-100.0); MEAN PLATELET VOLUME 11.2 fL (7.4-10.4); RBC 2.78 10x6/uL (4.00-5.40); RDW 15.8 % (11.5-14.5); WBC 6.4 10x3/uL (4.8-10.8)
[2018-03-06 06:14] LABS: ANION GAP 12.7 mmol/L (8-16); CALCIUM 8.2 mg/dL (8.5-10.1); CARBON DIOXIDE 22.1 mmol/L (21.0-32.0); CREATININE - SERUM 1.1 mg/dL (0.6-1.3); POTASSIUM - SERUM 3.8 mmol/L (3.5-5.1)
[2018-03-06 09:27] VITALS: BP 96/55
[2018-03-06 13:40] VITALS: BP 103/61
[2018-03-07 04:27] LABS: CALCIUM 8.2 mg/dL (8.5-10.1); CARBON DIOXIDE 21.9 mmol/L (21.0-32.0); CREATININE - SERUM 0.9 mg/dL (0.6-1.3); POTASSIUM - SERUM 3.9 mmol/L (3.5-5.1)
[2018-03-07 04:30] LABS: HEMATOCRIT 26.7 % (36.0-48.0); HEMOGLOBIN 8.7 g/dL (12-16); MCH 29.3 pg (26.0-34.0); MCHC 32.6 g/dL (31.0-37.0); MEAN PLATELET VOLUME 10.7 fL (7.4-10.4); RBC 2.97 10x6/uL (4.00-5.40); RDW 16.5 % (11.5-14.5); WBC 5.5 10x3/uL (4.8-10.8)
[2018-03-07 04:31] LABS: MCV 89.9 fL (80.0-100.0)
[2018-03-07 05:26] VITALS: BP 91/51
[2018-03-07 09:01] VITALS: BP 97/52
[2018-03-07 13:06] VITALS: BP 96/53
[2018-03-07 21:56] VITALS: BP 111/68
[2018-03-08 05:18] VITALS: BP 102/58
[2018-03-08 07:12] LABS: ERYTHROCYTE SEDIMENTATION RATE 42 mm/hr (0-30)
[2018-03-08] MEDS ORDERED: OXYCODONE HCL10 MG PO (08:07)
[2018-03-08] MEDS ORDERED: VIBRAMYCIN 100100 MG PO (08:07)
[2018-03-08] MEDS ORDERED: ELIQUIS2.5 MG PO (08:07)
[2018-03-08] MEDS ORDERED: RIFADIN300 MG PO (08:07)
[2018-03-08 10:38] VITALS: BP 109/60
[2018-03-08 15:00] VITALS: BP 94/57
== END 2018-03-08 17:20 | disposition home health service (06) | DRG 467 ==
LOC: D.MS 15:12
PROVIDERS: Orthopaedic Surgery; Student in an Organized Health Care Education/Training Program
PROC: 0SRB0JZ Replacement of Left Hip Joint with Synthetic Substitute, Open Approach (ICD-10-PCS; principal; 2018-03-03 13:00)
PROC: 0SPB08Z Removal of Spacer from Left Hip Joint, Open Approach (ICD-10-PCS; 2018-03-03 13:00)
DX: Z47.32 Aftercare following explantation of hip joint prosthesis (principal); D62 Acute posthemorrhagic anemia; I10 Essential (primary) hypertension; F41.8 Other specified anxiety disorders; D72.819 Decreased white blood cell count, unspecified; M79.7 Fibromyalgia; R60.9 Edema, unspecified

== ENCOUNTER 2018-03-18 14:59 | Inpatient (IN) | payer BC ==
[~2018-03-18] VITALS: Ht 167.6 cm; Wt 108.0 kg
--- NOTE | ~2018-03-18 | EC ---
PATIENT:ESTRADA BARR DATE OF SERVICE: 03/18/18 SEX: F MEDICAL RECORD: [id number] DATE OF : 59 LOCATION:D.[facility] [place] AGE OF PATIENT: 63 ADMISSION DATE: 03/18/18 REFERRING PHYSICIAN: INTERPRETING PHYSICIAN: DIONICIO ULRICH MD ECHOCARDIOGRAM REPORT ECHO CHARGES 4 ECHO COMPLETE Date: 03/18 CLINICAL DIAGNOSIS: ECHOCARDIOGRAPHIC MEASUREMENTS (adult normal given) AC root (d.<3.7cm) 2.4 cm LV Septum d (<1.2 cm> 1.1 cm Valve Excursion 1.1 cm LV Septum (systole) 1.7 cm Left Atria (s.<4.0cm> 2.9 cm LVPW d(<1.2cm) 1.3 cm RV (d.<2.3cm) 2.3 cm LVPW (sytole) 2.0 cm LV diastole(<5.6CM) 4.8 cm MV E-F(>70mm/sec) cm LV systole 2.4 cm LVOT Diameter 1.5 cm MV exc.(>10mm) cm Est.ejection fraction (50-75%) % DOPPLER: LVIT cm/sec A 101 cm/sec E 126 cm/sec LA cm/sec RVSP 48.1 mmHg LVOT 198 cm/sec AOP1/2T m/s Asc. Ao 253 cm/sec RVOT 69.0 cm/sec RA cm/sec PA 116 cm/sec AV Gradient Peak 26.0 mmHg AV Mean 13.0 mmHg AV Area 1.2 cm MV Gradient Peak 7.0 mmHg MV Mean 2.8 mmHg MV Area cm COMMENTS: Communications Planner: 1 BELEN REYNOLDSOE Insurance Claim Auditor: 3 Dr. Porras TAPE# PACS Pericardial Effusion N DATE OF SERVICE: Adequate 2-D echo, color flow and spectral Doppler, and M-mode. No LVH. LV internal dimensions are normal. Wall motion normal. EF greater than or equal to 55%. Aortic valve is calcified, but without significant restriction of leaflet motion. Peak gradient 26 mmHg, putting this in the mild range. Left atrium is normal at 2.9 cm. Mitral valve shows no prolapse. Trace MR. Right-sided chamber is normal. Trace TR. ECHOCARDIOGRAM REPORT [id number] ESTRADA BARR TRANSINT:[id number] Voice Confirmation ID: [id number] DOCUMENT ID: [id number] DIONICIO ULRICH MD at 0847 CC: [id number] DICTATION DATE: 03/19/18928 DRY WALL PLASTERER: 03/19/18 1425 ADM IN [facility] [address] [place] [address]
--- NOTE | ~2018-03-18 | CN ---
PATIENT NAME:ESTRADA RAMAN MEDICAL RECORD: [id number] : 59 LOCATION:D[facility] [place] ADMIT DATE: 03/18/18 ACCOUNT: [id number] CONSULTING PHYSICIAN: DIONICIO ULRICH MD REFERRING PHYSICIAN: TIFFANY CRAWFORD MD DATE OF CONSULTATION: 03/19/2018 Cardiology Consultation HISTORY OF PRESENT ILLNESS: Estrada Raman is a 63-year-old female with no known cardiovascular history. She has a history of hip revision secondary to septic hip, was in Dr. Crawford's office and had a syncopal episode. This is the third of the day. First one sound like almost classic orthostasis arising from the toilet. Second one was again arising. She presented to the ER. We asked to see her concerning her cardiovascular status. Of note, she has been on ketogenic diet with poor fluid intake using basically diet. Dr Guerra is her supplementation. Currently, she feels well with IV fluids and potassium supplementation. PAST MEDICAL HISTORY: Includes: 1. History of septic arthritis as described above. 2. Anxiety. 3. Chronic pain. MEDICATIONS: Include Protonix 40 mg p.o. every day, Lasix 20 mg p.o. every day, potassium chloride 10 mEq every day, Roxicodone 20 mg q.6, fentanyl patch 25 mcg q.72, Klonopin 0.5 b.i.d. p.r.n., Lyrica 75 b.i.d., Eliquis 2.5 b.i.d., Zanaflex 4 mg every day, rifampin 300 every day and doxycycline 100 mg b.i.d. ALLERGIES: ADHESIVE TAPE. SOCIAL HISTORY: She is a nonsmoker, nondrinker. Reports over 100 pound weight loss on the ketogenic diet. REVIEW OF SYSTEMS: The patient reports easy bruising but reports no swollen glands. The patient reports no fever, no night sweats, no significant weight gain, no significant weight loss. No significant exercise tolerance. The patient reports no dry eyes, no irritation, no vision change. Patient reports no difficulty hearing and no ear pain. Patient reports no frequent nose bleeds or nose and sinus problems. Patient reports on arm pain on exertion. No shortness of breath while lying down. No history of heart murmur. Patient reports no cough, no wheezing or coughing up blood. Patient reports no abdominal pain, no vomiting. Normal appetite. No diarrhea and not vomiting blood. No nausea and no constipation. Patient reports no incontinence. No difficulty urinating. No hematuria. No increased frequency. Patient reports no muscle aches. No weakness, no arthralgias, no back pain. No swelling of the extremities. Patient reports no abnormal mole, no jaundice, no rashes. Reports no loss of consciousness. No weakness and no numbness. No seizures, dizziness, or headaches. The patient reports no depression, no sleep disturbance, feeling safe in a relationship and no alcohol abuse. Patient reports on fatigue. Reports no runny nose or sinus pressure. No itching, no hives, and no frequent sneezing. PHYSICAL EXAMINATION: CONSULT REPORT [id number] ESTRADA RAMAN GENERAL: Pleasant female in no acute distress. VITAL SIGNS: Blood pressure 79/39, pulse 73 and regular. HEENT: Normocephalic and atraumatic. NECK: No JVD or bruit. HEART: Regular, II/ systolic ejection murmur. LUNGS: Good air excursion. ABDOMEN: Soft and nontender. Pulses 2+. There is no edema. NEUROLOGIC: Grossly intact. DIAGNOSTIC DATA: ECG shows sinus jelena, rate 59, right bundle branch block morphology on the QRS complex. IMPRESSION: Syncope, I suspect intravascular volume depletion secondary to ketogenic diet, probably exacerbated by hypokalemia. I agree with hydration and potassium supplementation. Echocardiographic study shows structurally sound LV. Thank you for the consultation. TRANSINT:[id number] Voice Confirmation ID: [id number] DOCUMENT ID: [id number] DIONICIO ULRICH MD at 0847 CC: [id number] DICTATION DATE: 03/19/18 1047 LOADER HELPER SORTING YARD: 03/19/18 1642 ADM IN [facility] [address] [place] [address]
--- NOTE | ~2018-03-18 | CN ---
PATIENT NAME:ESTRADA BARR MEDICAL RECORD: [id number] : 59 LOCATION:D.[facility] [place] ADMIT DATE: 03/18/18 ACCOUNT: [id number] CONSULTING PHYSICIAN: OLYA BENITO DO REFERRING PHYSICIAN: TIFFANY CRAWFORD MD DATE OF CONSULTATION: 03/18/2018 HISTORY OF PRESENT ILLNESS: A 63-year-old female, consult for medical management of hypotension, syncope, and collapse, 3 episodes today. The patient was seen in the clinic at Dr. Crawford's office today, had a witnessed episode of syncope and collapse, has had 2 prior episodes earlier today, status post left total hip revision secondary to septic hip, had protracted course of IV antibiotics prior to the revision, was also found to be hypotensive in the clinic with blood pressure of 85/55. CURRENT MEDICATIONS: Duragesic patch, doxycycline, rifampin, Eliquis, oxycodone, venlafaxine, Protonix, Soma, Zanaflex, and Lyrica. ALLERGIES: ADHESIVE TAPE. REVIEW OF SYSTEMS: GENERAL: No acute change in weight or appetite. HEENT: No cephalgia, visual changes, tinnitus, epistaxis, or dysphagia. CARDIOVASCULAR: Has had noted slow heart rate of late, noted by daughter who is also a nurse. GASTROINTESTINAL: Denies hematemesis, hematochezia, or melena. GENITOURINARY: Denies dysuria. MUSCULOSKELETAL: Status post left total hip, chronic, moderate severe edema in lower extremities, bilateral, left greater than right. This is unchanged per daughter. PHYSICAL EXAMINATION: VITAL SIGNS: Temp 97.7, blood pressures 80/39, heart rate 55, respirations 16, O2 sat 100%. GENERAL: Alert, oriented, no acute distress in supine position. HEENT: Normocephalic, atraumatic. Eyes: Pupils are equally round and reactive. Ears: Canals patent, TMs are intact. Nose: Nares patent without drainage. Throat: No erythema, no exudates. NECK: Supple. No lymphadenopathy. HEART: Regular, bradycardic, murmur present. The patient states she has a congenital murmur, has not had an echocardiogram in approximately 10 years. LUNGS: Clear to auscultation bilaterally. Breathing is nonlabored. ABDOMEN: Soft, nontender. Bowel sounds positive. EXTREMITIES: Bilateral lower extremity edema, pitting to the knees, left greater than right. Status post left hip dressing in place. LABORATORY DATA: CBC: White count 11.4, hemoglobin 12.3, hematocrit 36.7, platelets 444. Sed rate 7, neutrophils 80.7%. Chemistry shows a sodium of 135, potassium 3.8, chloride 95, bicarbonate 27.2, BUN 33, creatinine 1.5, calcium 7.9. C-reactive protein 8.3. ASSESSMENT AND PLAN: 1. Syncope and collapse, witnessed, no seizure activity, no loss of control, bowel or bladder, will obtain EKG, cardiac enzymes, echocardiogram. Place the patient on telemetry with her bradycardia. Consult cardiology with a history of CONSULT REPORT [id number] ESTRADA BARR septic left hip prior to revision. We will obtain blood cultures times 2 with the leukocytosis likely reactionary. We will also culture urine. 2. Chronic pain, significant pain with left hip, dependence on pain medications. Judicious use of pain medications until the etiology of syncope and hypotension obtained. TRANSINT:[id number] Voice Confirmation ID: [id number] DOCUMENT ID: [id number] OLYA BENITO DO at 1128 CC: [id number] DICTATION DATE: 03/18/181737 MENTAL HEALTH UNIT LEAD PSYCHOLOGIST: 03/19/18 [address] [facility] [address] [place] [id number]
[~2018-03-18 14:59] MED LIST changes: +RIFADIN300 MG PO; +VIBRAMYCIN 100100 MG PO
[2018-03-18 15:19] LABS: BASOPHILS 0.2 % (0-2); EOSINOPHILS 0.2 % (0-7); HEMATOCRIT 36.7 % (36.0-48.0); HEMOGLOBIN 12.3 g/dL (12-16); IMMATURE GRANULOCYTES 0.5 % (0-5); LYMPHOCYTES 7.7 % (15-50); MCH 28.4 pg (26.0-34.0); MCHC 33.5 g/dL (31.0-37.0); MCV 84.8 fL (80.0-100.0); MEAN PLATELET VOLUME 10.6 fL (7.4-10.4); MONOCYTES 10.7 % (2-11); NEUTROPHILS 80.7 % (40-80); PLATELET COUNT 444 10x3/uL (130-400); RBC 4.33 10x6/uL (4.00-5.40); WBC 11.4 10x3/uL (4.8-10.8)
[2018-03-18 16:21] LABS: ERYTHROCYTE SEDIMENTATION RATE 7 mm/hr (0-30)
[2018-03-18 17:13] LABS: ANION GAP 16.6 mmol/L (8-16); CALCIUM 7.9 mg/dL (8.5-10.1); CARBON DIOXIDE 27.2 mmol/L (21.0-32.0); CREATININE - SERUM 1.5 mg/dL (0.6-1.3); POTASSIUM - SERUM 3.8 mmol/L (3.5-5.1)
[2018-03-18 17:22] VITALS: BP 80/39; BMI 38.5
[2018-03-18 18:52] LABS: CKMB 2.1 U/L (0.0-3.6); TROPONIN-I < 0.017 ng/mL (0.000-0.060)
[2018-03-18 20:00] VITALS: BP 80/44
[2018-03-18] MEDS ORDERED: PROTONIX40 MG PO (20:45)
[2018-03-18] MEDS ORDERED: LASIX40 MG PO (20:47)
[2018-03-18] MEDS ORDERED: KLONOPIN0.5 MG PO (20:50)
[2018-03-19] VITALS: BP 85/38
[2018-03-19 04:00] VITALS: BP 79/39
[2018-03-19 05:34] LABS: BASOPHILS 0.4 % (0-2); EOSINOPHILS 1.1 % (0-7); HEMATOCRIT 29.9 % (36.0-48.0); HEMOGLOBIN 9.9 g/dL (12-16); IMMATURE GRANULOCYTES 0.3 % (0-5); LYMPHOCYTES 18.2 % (15-50); MCH 27.8 pg (26.0-34.0); MCHC 33.1 g/dL (31.0-37.0); MONOCYTES 17.9 % (2-11); NEUTROPHILS 62.1 % (40-80); RBC 3.56 10x6/uL (4.00-5.40); RDW 14.9 % (11.5-14.5)
[2018-03-19 06:03] LABS: PLATELET COUNT 302 10x3/uL (130-400); WBC 7.1 10x3/uL (4.8-10.8)
[2018-03-19 06:13] LABS: CALCIUM 7.3 mg/dL (8.5-10.1); CARBON DIOXIDE 24.8 mmol/L (21.0-32.0); CREATININE - SERUM 1.6 mg/dL (0.6-1.3); MAGNESIUM - SERUM 1.5 mg/dL (1.8-2.4); PHOSPHOROUS 3.9 mg/dL (2.5-4.9)
[2018-03-19 06:18] LABS: POTASSIUM - SERUM 2.8 mmol/L (3.5-5.1)
[2018-03-19 07:42] VITALS: BP 76/35
[2018-03-19 10:34] VITALS: BMI 38.4
[2018-03-19 12:18] VITALS: BP 84/42
[2018-03-19 15:49] VITALS: BP 92/50
[2018-03-19 20:00] VITALS: BP 110/50
[2018-03-20 04:00] VITALS: BP 105/89
[2018-03-20 05:39] LABS: BASOPHILS 0.3 % (0-2); EOSINOPHILS 0.1 % (0-7); HEMATOCRIT 30.7 % (36.0-48.0); HEMOGLOBIN 10.2 g/dL (12-16); IMMATURE GRANULOCYTES 0.3 % (0-5); LYMPHOCYTES 14.7 % (15-50); MCH 28.2 pg (26.0-34.0); MCHC 33.2 g/dL (31.0-37.0); MCV 84.8 fL (80.0-100.0); MEAN PLATELET VOLUME 10.7 fL (7.4-10.4); MONOCYTES 13.2 % (2-11); NEUTROPHILS 71.4 % (40-80); PLATELET COUNT 273 10x3/uL (130-400); RBC 3.62 10x6/uL (4.00-5.40); RDW 15.1 % (11.5-14.5); WBC 7.4 10x3/uL (4.8-10.8)
[2018-03-20 05:47] LABS: INR 1.52 (0.85-1.17); PROTIME 17.8 SECONDS (11.6-15.0)
[2018-03-20 05:48] LABS: APTT 45.5 SECONDS (22.8-39.4)
[2018-03-20 05:59] LABS: ANION GAP 12.8 mmol/L (8-16); CALCIUM 7.4 mg/dL (8.5-10.1); CARBON DIOXIDE 24.5 mmol/L (21.0-32.0); CREATININE - SERUM 1.2 mg/dL (0.6-1.3); MAGNESIUM - SERUM 1.4 mg/dL (1.8-2.4); POTASSIUM - SERUM 3.3 mmol/L (3.5-5.1)
[2018-03-20 06:06] LABS: PHOSPHOROUS 2.7 mg/dL (2.5-4.9)
[2018-03-20 08:21] VITALS: BP 110/48
[2018-03-20 12:29] VITALS: BP 127/56
[2018-03-20 16:51] VITALS: BP 130/58
[2018-03-21 04:20] VITALS: BP 147/62
[2018-03-21 06:41] LABS: ANION GAP 12.1 mmol/L (8-16); CALCIUM 7.8 mg/dL (8.5-10.1); CARBON DIOXIDE 26.2 mmol/L (21.0-32.0); POTASSIUM - SERUM 3.3 mmol/L (3.5-5.1)
[2018-03-21 08:23] VITALS: BP 134/67
[2018-03-21 13:53] VITALS: BP 134/70
[2018-03-21 16:41] VITALS: BP 139/61
[2018-03-21 21:26] VITALS: BP 144/64
[2018-03-22 02:09] VITALS: BP 140/63
[2018-03-22 04:57] LABS: BASOPHILS 0.5 % (0-2); EOSINOPHILS 0.2 % (0-7); HEMATOCRIT 34.8 % (36.0-48.0); HEMOGLOBIN 11.5 g/dL (12-16); IMMATURE GRANULOCYTES 0.5 % (0-5); LYMPHOCYTES 16.3 % (15-50); MCH 28.1 pg (26.0-34.0); MCV 85.1 fL (80.0-100.0); MEAN PLATELET VOLUME 10.9 fL (7.4-10.4); MONOCYTES 11.7 % (2-11); NEUTROPHILS 70.8 % (40-80); PLATELET COUNT 267 10x3/uL (130-400); RBC 4.09 10x6/uL (4.00-5.40); RDW 15.4 % (11.5-14.5)
[2018-03-22 04:58] LABS: WBC 4.4 10x3/uL (4.8-10.8)
[2018-03-22 05:14] LABS: ANION GAP 14.2 mmol/L (8-16); CALCIUM 8.5 mg/dL (8.5-10.1); CARBON DIOXIDE 25.1 mmol/L (21.0-32.0); CREATININE - SERUM 1.2 mg/dL (0.6-1.3); MAGNESIUM - SERUM 1.7 mg/dL (1.8-2.4); POTASSIUM - SERUM 3.3 mmol/L (3.5-5.1)
[2018-03-22 05:24] VITALS: BP 146/88
[2018-03-22 08:48] VITALS: BP 153/75
[2018-03-22 13:12] VITALS: BP 143/68
[2018-03-22] MEDS ORDERED: RIFADIN300 MG PO (14:34)
[2018-03-22] MEDS ORDERED: OXYCODONE HCL10 MG PO (14:35)
[2018-03-22 15:33] VITALS: Ht 167.6 cm; Wt 108.0 kg
== END 2018-03-22 15:27 | disposition home health service (06) | DRG 312 ==
LOC: D.LABREF 14:59 → D.MS 15:24
PROVIDERS: Family Medicine; Orthopaedic Surgery
DX: R55 Syncope and collapse (principal); I95.9 Hypotension, unspecified; E86.0 Dehydration; E87.6 Hypokalemia; I10 Essential (primary) hypertension; R00.1 Bradycardia, unspecified; F32.9 Major depressive disorder, single episode, unspecified; G89.29 Other chronic pain; R82.71 Bacteriuria

== ENCOUNTER → 2018-03-30 16:48 | Outpatient (CLI) | payer BC ==
[2018-03-22 15:33] VITALS: BMI 38.4
[~2018-03-30 16:48] MED LIST changes: +KLONOPIN0.5 MG PO; +LASIX40 MG PO
[2018-03-30 18:40] LABS: BASOPHILS 0.6 % (0-2); EOSINOPHILS 0.4 % (0-7); HEMATOCRIT 36.5 % (36.0-48.0); HEMOGLOBIN 11.9 g/dL (12-16); IMMATURE GRANULOCYTES 0.2 % (0-5); LYMPHOCYTES 13.1 % (15-50); MCH 28.2 pg (26.0-34.0); MCHC 32.6 g/dL (31.0-37.0); MCV 86.5 fL (80.0-100.0); MEAN PLATELET VOLUME 11.8 fL (7.4-10.4); MONOCYTES 11.2 % (2-11); NEUTROPHILS 74.5 % (40-80); PLATELET COUNT 302 10x3/uL (130-400); RBC 4.22 10x6/uL (4.00-5.40); RDW 15.9 % (11.5-14.5); WBC 5.3 10x3/uL (4.8-10.8)
[2018-03-30 19:28] LABS: CALCIUM 8.3 mg/dL (8.5-10.1); CARBON DIOXIDE 26.4 mmol/L (21.0-32.0); CREATININE - SERUM 1.3 mg/dL (0.6-1.3); POTASSIUM - SERUM 4.4 mmol/L (3.5-5.1)
== END | disposition home or self-care (01) ==
LOC: D.LABREF 16:48
PROVIDERS: Orthopaedic Surgery
DX: M25.552 Pain in left hip (principal)

== ENCOUNTER → 2018-04-20 10:51 | Outpatient (CLI) | payer BC ==
[2018-03-22 15:33] VITALS: BMI 38.4
== END | disposition home or self-care (01) ==
LOC: D.LABREF 10:51
DX: Z96.642 Presence of left artificial hip joint (principal)

== ENCOUNTER → 2018-07-14 16:46 | Outpatient (CLI) | payer BC ==
[2018-03-22 15:33] VITALS: BMI 38.4
== END | disposition home or self-care (01) ==
LOC: D.LABREF 16:46
DX: M25.552 Pain in left hip (principal)

== ENCOUNTER → 2018-10-11 17:01 | Outpatient (CLI) | payer BC ==
[2018-03-22 15:33] VITALS: BMI 38.4
== END | disposition home or self-care (01) ==
LOC: D.LABREF 17:01
DX: S71.001A Unspecified open wound, right hip, initial encounter (principal); X58.XXXA Exposure to other specified factors, initial encounter